=== PATIENT | male | born 1955 | race Caucasian/White ===

== ENCOUNTER 2017-01-26 16:18 | Inpatient (IN) | payer BC ==
[~2017-01-26] VITALS: Ht 172.7 cm; Wt 81.6 kg
[2017-01-26 17:01] VITALS: BP 150/79; PULSE 71; RESP 18
[2017-01-26] MEDS ORDERED: NACL 0.9% 3 ML SYG IV SCH (17:30)
[2017-01-26] MEDS ORDERED: DOCUSATE SODIUM 100 MG CAP PO PRN (17:30)
[2017-01-26] MEDS ORDERED: ONDANSETRON 4 MG INJ IV PRN (17:30)
[2017-01-26] MEDS ORDERED: BARIUM SULF 2% 450 ML BTL (BERRY SMOOTHIE) PO ONE (17:30)
[2017-01-26] MEDS ORDERED: HYDROCODONE/APAP (5/325) TAB PO PRN (17:30)
[2017-01-26] MEDS ORDERED: MAGNESIUM HYDROXIDE 30ML CUP PO PRN (17:30)
--- NOTE | 2017-01-26 17:37 | HP ---
Date/Time of Note Date/Time of Note DATE: 01/26/17 TIME: 17:31 Assessment/Plan VTE Prophylaxis VTE Prophylaxis Intervention: contraindicated Lines/Catheters Urinary Cath still in place: No Assessment/Plan Assessment/Plan 1. Acute renal failure - Patient found to have Cr of 5 with GFR 12 on labs performed at [facility] - Nephrology on board and consultation appreciated. CT abd/pelvis ordered to rule out obstruction vs hydro causing renal impairment - Will avoid nephrotoxic agents and renally dose medications 2. Acute painless hematuria - Urology consulted and awaiting recommendations - CT abd/pelvis ordered 3. ?Urinary tract infection - Will order UA and urine culture - Was on Cipro PO and will start on IV Ceftriaxone until sensitivities return. - Patient had an elevated WBC but afebrile 4. CAD s/p stent 1 year ago - Will hold off on restarting Aspirin secondary to hematuria - Continue on BB and statin 5. Diet - heart healthy 6. DVT ppx - SCD 7. GI ppx - PPI 8. Code Status - Full Code 9. Disposition - Admit to Med/Surg for further evaluation HPI/ROS Admit Date/Time Admit Date/Time Jan 26, 2017 at 16:18 Hx of Present Illness 61 yo M with PMH CAD s/p stent placement 1 year ago was transferred from [facility] after findings of hematuria and acute renal failure. Patient states he was experiencing burning with urination and well as has been needing to strain to urinate since Tuesday and went to see his PCP on Tuesday. He was diagnosed with a UTI and given a Ciprofloxacin and Flomax. He states he took one tab of Flomax and developed headache, dizziness, and flushing so stopped the medication. He was also told that he had renal failure by his PCP on Tuesday. Patient states this am he woke up with hematuria and still experiencing dysuria. He presented to [facility], blood work was performed, and transferred to [facility] due to insurance. Denies any chest pain, shortness of breath, dizziness, headache, nausea, vomiting, or abdominal issues. Patient denies any recent weight loss. ROS Constitutional: No chills, No fatigue, No febrile, No nausea Eyes: no complaints ENT: no complaints Respiratory: No cough, No shortness of breath, No sputum, No wheezing Cardiovascular: No chest pain, No edema, No palpitations Gastrointestinal: No constipation, No diarrhea, No vomiting Genitourinary: dysuria, hematuria Musculoskeletal: no complaints Skin: no complaints Neurologic: no complaints Endocrine: no complaints Lymphatic: no complaints Psychological: nl mood/affect Immunologic: no complaints PMH/Family/Social Past Medical History Medical History: coronary artery disease Past Surgical History Past Surgical Hx: no surgical history Family History Significant Family History: no pertinent family hx Social History Alcohol Use: none Smoking Status: Never smoker Drug Use: none Exam/Review of Systems Vital Signs Vitals Vital Signs Date Time Temp Pulse Resp B/P Pulse Ox O2 Delivery O2 Flow Rate FiO2 01/26/17 17:01 98.2 71 18 150/79 96 Room Air Exam Constitutional: alert, oriented, well developed, No distress Psych: nl mood/affect Head: atraumatic, normocephalic Eyes: EOMI, PERRL ENMT: mucosa pink and moist Neck: non-tender, supple Respiratory: clear to auscultation, normal air movement, No crackles/rales, No wheezing Cardiovascular: nl pulses, regular rate and rhythm, No murmurs/extra sounds, No systolic murmur Gastrointestinal: bowel sounds, non-tender, soft, No distended, No firm, No rebound or guarding Genitourinary - Male: other (hematruia), No CVA tenderness Musculoskeletal: nl extremities to inspection, nl gait and stance Extremities: normal pulses Neurological: NURSING COORDINATOR II-XII intact, nl mental status Skin: nl turgor Lymph: nl lymph nodes Medications Medications Home medications reviewed Aspirin 81mg Lisinopril 5mg Atorvastatin 20mg Carvedilol 6.25mg BID Cipro 500mg BID IRVING BACON MD Jan 26, 2017 17:37
[2017-01-26] MEDS: SOD CHLORIDE 0.9% 1,000 ML IV SCH (19:04)
--- NOTE | 2017-01-26 19:24 | RADRPT ---
PROCEDURE: XR Chest. CLINICAL INDICATION: Cough TECHNIQUE: Single AP view of the chest were obtained COMPARISON: None FINDINGS: The heart and mediastinum are within normal limits. The pulmonary vasculature are unremarkable. The aorta demonstrates atherosclerotic calcifications. There is no lung consolidation, pleural effusio n or pneumothorax. Degenerative changes are seen within the thoracic spine. There is no acute osse ous abnormality. IMPRESSION: No acute disease. RPTAT: AA .Xiomara Groves MD, Date Time Electronically viewed and signed by .Xiomara Groves MD, MD on 01/26/2017 19:24 .J/
[2017-01-26 20:00] VITALS: Ht 172.7 cm; Wt 81.6 kg
--- NOTE | 2017-01-26 21:49 | RADRPT ---
PROCEDURE: CT Abdomen and Pelvis without contrast. CLINICAL INDICATION: Acute renal failure, hematuria TECHNIQUE: CT of the abdomen and pelvis was performed on a multi-detector scanner without IV contr ast. Coronal and sagittal images were reformatted from the axial data set. One or more of the foll owing dose reduction techniques were used: automated exposure control, adjustment of the mA and/or k V according to patient size, use of iterative reconstruction technique. CTDI = 11.52 mGy. DLP = 661 .21 mGy-cm. COMPARISON: None. FINDINGS: The lung bases are clear. The heart size is normal, without pericardial effusion. Coronary arteria l calcification and stents are noted. Liver, gallbladder, biliary tree, pancreas, spleen and adrenal glands are unremarkable. There is minimal bilateral hydroureteronephrosis to the level of the urina ry bladder, without evidence of urinary calculus. Bilateral renal cysts are noted. The stomach is mi ldly distended and debris filled, but otherwise grossly unremarkable. The aorta is of normal caliber. Aortic vascular calcifications are present. There is no retroperit crocker lymphadenopathy. The lavern hepatis region is clear. No bowel obstruction, free intraperitoneal air or abscess is identified. There is no diverticulosis, diverticulitis, colitis or appendicitis. Urinary bladder wall is circumferentially thickened, with scattered diverticula noted, compatible with muscular hypertrophy secondary to chronic urinary reten tion. Prostate is mildly enlarged. No pelvic mass, free fluid or lymphadenopathy is identified. Smal l bilateral fat containing inguinal hernias are noted. The surrounding osseous structures are remarkable for degenerative enthesopathy of the spine. No os teolytic or osteoblastic lesion is detected. IMPRESSION: 1. Urinary bladder wall muscular hypertrophy and scattered bladder diverticula are noted, presumabl y secondary to chronic urinary retention. Prostate is mildly enlarged - correlate with PSA level. 2. There is minimal bilateral hydroureteronephrosis to the level of the urinary bladder, most likel y secondary to bladder wall thickening. No evidence of urinary calculus is identified. 3. Coronary arterial and aortoiliac atherosclerotic calcifications are present. 4. Small bilateral fat containing inguinal hernias are seen, without incarceration. 5. No mass, lymphadenopathy, or acute inflammatory process is identified. RPTAT: HDWR .Tyrone Dangelo MD, MD Date Time Electronically viewed and signed by .Tyrone Dangelo MD, MD on 01/26/2017 21:49 .R/
[2017-01-26] MEDS: ATORVASTATIN 20 MG TAB PO SCH (21:50)
[2017-01-26] MEDS: CEFTRIAXONE 1 GM/50 ML (PMX) 50 ML IVPB SCH (21:50)
[2017-01-26 22:14] VITALS: BP 121/71; RESP 18
[2017-01-27 01:56] LABS: ADD UMIC YES; UR ASCORBIC ACID NEGATIVE (NEGATIVE); UR BACTERIA MANY /HPF (NONE SEEN); UR BILIRUBIN (Dip) NEGATIVE (NEGATIVE); UR BLOOD (Dip) 2+ mg/dL (NEGATIVE); UR CLARITY CLEAR (CLEAR); UR COLOR RED (YELLOW); UR GLUCOSE (Dip) 1+ mg/dL (NEGATIVE); UR KETONES (Dip) NEGATIVE (NEGATIVE); UR LEUKOCYTE ESTERASE (Dip) NEGATIVE Leu/ul (NEGATIVE); UR MUCUS FEW /HPF (NONE SEEN); UR NITRITE (Dip) POSITIVE (NEGATIVE); UR RBC > 182 /HPF (0-5); UR SPECIFIC GRAVITY (Dip) 1.006 (1.003-1.030); UR SQUAMOUS EPITHELIAL CELL FEW /HPF (FEW); UR TOTAL PROTEIN (Dip) 2+ mg/dl (NEGATIVE); UR UROBILINOGEN (Dip) 1+ mg/dL (NEGATIVE)
[2017-01-27 02:02] VITALS: BP 102/67; RESP 18
--- NOTE | 2017-01-27 02:44 | CONS ---
DATE OF ADMISSION: 01/26/2017 DATE OF CONSULTATION: Thank you, Dr. Dutta, for asking us to participate in medical management of this patient. REASON FOR CONSULTATION: Renal failure and gross hematuria. HISTORY OF PRESENT ILLNESS: This 61-year-old man was transferred today from [facility] er after he presented there with gross hematuria. The patient said that he was well until last week when he developed some urinary frequency. He saw his primary care physician and was prescribed Cip ro and Flomax. The patient continued those medications; however, he could not tolerate the Flomax that caused him to feel lightheaded and dizzy. He stopped the Flomax and continued the Cipro. The patient then today developed gross hematuria and dysuria. He went to [place]'s emergency room an d was evaluated and found to have a BUN of 44 and a serum creatinine of 5.01. The patient denies an y prior history of kidney disease. He does have a history of coronary artery disease and did underg o a coronary angiogram 1 year ago and had stents placed in coronary arteries. He has been taking me dications since then which included: 1. Carvedilol 6.25 mg twice a day. 2. Lisinopril 5 mg a day. 3. Aspirin 81 mg a day. 4. Atorvastatin 20 mg a day. 5. Plavix 75 mg a day. The patient denies any history of prostatism, kidney stones, previous urinary tract infections. He denies any fever, chills or flank pain. PAST MEDICAL HISTORY: Remarkable for coronary artery disease, hyperlipidemia. ALLERGIES: HE HAS NO KNOWN DRUG ALLERGIES. PAST SURGICAL HISTORY: Unremarkable except for prior stents placed. REVIEW OF SYSTEMS: CARDIORESPIRATORY: He denies any chest pain, shortness of breath, cough, ankle swelling. GASTROINTESTINAL: None. GENITOURINARY: See above. PHYSICAL EXAMINATION: GENERAL: At this time reveals a well-developed man in no apparent distress. VITAL SIGNS: Temperature 98.2, pulse is 71, respirations 18, blood pressure 150/79, O2 saturation 9 6% on room air. HEENT: Head normocephalic. Eyes: Extraocular muscles intact. NOSE AND MOUTH: Normal. NECK: Supple, no neck vein distention. LUNGS: Clear to auscultation and percussion. HEART: Regular rhythm. No murmurs, gallops or rubs. ABDOMEN: Soft, nontender, no masses or megaly. EXTREMITIES: No peripheral edema. NEUROLOGIC: Grossly intact. IMPRESSION: 1. Acute renal failure. This patient presents now with an elevated BUN and serum creatinine. He h as no prior history of kidney disease. He does have gross hematuria and one must be suspicious of o bstructive uropathy. Will rule out benign prostatic hypertrophy, rule out urinary tract malignancy, rule out urinary tract infection. 2. Gross hematuria. 3. Coronary artery disease. 4. Hyperlipidemia. PLAN: 1. Insert Brower catheter to gravity drainage. 2. Check labs in the morning. 3. Chest x-ray. 4. CAT scan of the abdomen without IV contrast. 5. IV fluids. 6. I will follow the patient along with you. Dictated By: TAMMY LARA MD, ND/FALGUNI Conf#: [id number] DID#: [id number]
[2017-01-27] MEDS: SOD CHLORIDE 0.9% 1,000 ML IV SCH ×2 (03:02→05:41)
[2017-01-27 05:19] LABS: ABNORMAL IP MESSAGE 1; BASOPHIL # 0.1 10^3/ul (0.0-0.1); BASOPHILS % 0.5 % (0.0-2.0); EOSINOPHILS % 0.2 % (0.0-7.0); HEMATOCRIT 37.3 % (42.0-52.0); HEMOGLOBIN 12.6 g/dl (14.0-18.0); LYMPHOCYTES # 1.2 10^3/ul (0.8-2.9); LYMPHOCYTES % 10.5 % (15.0-51.0); MEAN CORPUSCULAR HEMOGLOBIN 31.2 pg (29.0-33.0); MEAN CORPUSCULAR HGB CONC 33.8 g/dl (32.0-37.0); MEAN CORPUSCULAR VOLUME 92.3 fl (82.0-101.0); MEAN PLATELET VOLUME 11.7 fl (7.4-10.4); MONOCYTE # 1.7 10^3/ul (0.3-0.9); MONOCYTES % 14.9 % (0.0-11.0); NEUTROPHIL # 8.1 10^3/ul (1.6-7.5); NEUTROPHILS % 73.2 % (39.0-77.0); PLATELET COUNT 105 10^3/UL (140-415); POSITIVE DIFF @See below; RED BLOOD COUNT 4.04 10^6/ul (4.70-6.10); RED CELL DISTRIBUTION WIDTH 14.7 % (11.5-14.5); WHITE BLOOD COUNT 11.1 10^3/ul (4.8-10.8)
[2017-01-27 05:26] LABS: INR 1.19; PROTIME 15.2 Sec (12.2-14.2); PT RATIO 1.2
[2017-01-27 05:27] LABS: PARTIAL THROMBOPLASTIN TIME 28.1 Sec (25.0-35.0)
[2017-01-27] MEDS: PANTOPRAZOLE (EC) 40 MG TAB PO SCH (05:41)
[2017-01-27 06:21] LABS: ALBUMIN 3.5 g/dl (3.3-4.9); ALBUMIN/GLOBULIN RATIO 1.09; BILIRUBIN,INDIRECT 8.6 mg/dl (0-1.1); BILIRUBIN,TOTAL 8.6 mg/dl (0.2-1.3); CALCIUM 8.8 mg/dl (8.4-10.2); CREATININE 4.16 mg/dl (0.61-1.24); MAGNESIUM 2.2 mg/dl (1.7-2.5); POTASSIUM 4.3 mmol/L (3.5-5.1); TOTAL PROTEIN 6.7 g/dl (6.1-8.1)
[2017-01-27 07:33] VITALS: BP 127/76; RESP 19
--- NOTE | 2017-01-27 08:09 | CONS ---
Date/Time of Note Date/Time of Note DATE: 01/27/17 TIME: 07:57 Assessment/Plan Assessment/Plan Chief Complaint/Hosp Course 61-year-old male with gross hematuria and symptoms suggestive of urinary tract infection has acute renal failure. He had a Brower catheter that was not all the way inside the bladder causing him obstruction and when that was removed he was able to urinate. He just voided and the urine is light pink and it is clearing from what it was grossly bloody during the night. Will send urine for culture and sensitivity, urine cytology, cover him with antibiotics and check his PSA on the blood that was drawn at the time of admission and he will need to undergo a cystoscopy to check for bladder tumor. He also was seen in a nephrology consultation for his renal failure Problems: Consultation Date/Type/Reason Admit Date/Time Jan 26, 2017 at 16:18 Date of Consultation: Jan 27, 2017 Type of Consultation: UROLOGY Reason for Consultation Gross hematuria Referring Provider: IRVING BACON MD Hx of Present Illness 61-year-old male started having urinary frequency one week earlier and feeling he has to push to urinate. He went to his primary care physician and was diagnosed with urinary tract infection. He was prescribed Cipro and tamsulosin. He took one time tamsulosin and started having headaches and flushing so he stopped it. His condition did not improve and he started having hematuria. He went to [facility] and was transferred to [facility] because of his insurance. Laboratory data from [facility] showed that he is in renal failure. When he was admitted to [facility] a Brower catheter was inserted however the Brower catheter was not draining and he had blood in the catheter. I instructed the nurse at night to remove the Brower catheter as on the CT scan that he had the catheter did not appear to be in the bladder and may be causing him obstruction rather than draining his urine. Indeed after the nurse remove the Brower catheter the patient was able to urinate and he urinated large volume and he just urinated now and the urine is gradually clearing up. Constitutional: no complaints Eyes: no complaints ENT: no complaints Respiratory: no complaints, No cough, No shortness of breath, No sputum, No wheezing Cardiovascular: other (Patient has a history of heart attack one year ago and had 2 stents placed at [facility]), No chest pain, No edema, No palpitations Gastrointestinal: No constipation, No diarrhea, No vomiting Genitourinary: bleeding, dysuria, hematuria Musculoskeletal: no complaints Skin: no complaints Neurologic: no complaints Lymphatic: no complaints Psychological: nl mood/affect Immunologic: no complaints Past Medical History Medical History: coronary artery disease (Heart attack 1 year ago and placement of 2 coronary stents) Past Surgical History Past Surgical Hx: no surgical history Family History Significant Family History: no pertinent family hx Social History Alcohol Use: none Smoking Status: Never smoker Drug Use: none Exam/Review of Systems Vital Signs Vitals Vital Signs Date Time Temp Pulse Resp B/P Pulse Ox O2 Delivery O2 Flow Rate FiO2 01/27/17 07:33 98.2 65 19 127/76 98 01/26/17 17:01 Room Air Intake and Output 01/26/17 01/26/17 01/27/17 15:00 23:00 07:00 Intake Total 50 ml 1700 ml Output Total 1500 ml Balance 50 ml 200 ml Exam Constitutional: alert, oriented Psych: no complaints Head: normocephalic Eyes: nl conjunctiva ENMT: nl external ears & nose Neck: non-tender, supple Respiratory: normal air movement Cardiovascular: nl pulses, No edema Gastrointestinal: non-tender, soft Genitourinary - Male: nl penis, nl scrotum, other (Rectal exam prostate is a little firm on the right side and enlarged.), No CVA tenderness Musculoskeletal: nl extremities to inspection Extremities: No calf tenderness, No edema Skin: nl turgor Lymph: nl lymph nodes Results Result Diagram: 01/27/17 0439 01/27/17 0439 Results 24 hrs Laboratory Tests Test 01/26/17 21:45 01/27/17 04:38 01/27/17 04:39 Urine Color RED Urine Clarity CLEAR Urine pH 7.0 Urine Specific [place] 1.006 Urine Ketones NEGATIVE Urine Nitrite POSITIVE A Urine Bilirubin NEGATIVE Urine Urobilinogen 1+ H Urine Leukocyte Esterase NEGATIVE Urine Microscopic RBC > 182 H Urine Microscopic WBC 10 H Urine Squamous Epithelial Cells FEW Urine Bacteria MANY A Urine Mucus FEW A Urine Hemoglobin 2+ H Urine Glucose 1+ H Urine Total Protein 2+ H Prothrombin Time 15.2 H Prothrombin Time Ratio 1.2 INR International Normalized Ratio 1.19 Activated Partial Thromboplast Time 28.1 White Blood Count 11.1 H Red Blood Count 4.04 L Hemoglobin 12.6 L Hematocrit 37.3 L Mean Corpuscular Volume 92.3 Mean Corpuscular Hemoglobin 31.2 Mean Corpuscular Hemoglobin Concent 33.8 Red Cell Distribution Width 14.7 H Platelet Count 105 L Mean Platelet Volume 11.7 H Neutrophils % 73.2 Lymphocytes % 10.5 L Monocytes % 14.9 H Eosinophils % 0.2 Basophils % 0.5 Nucleated Red Blood Cells % 0.0 Neutrophils # 8.1 H Lymphocytes # 1.2 Monocytes # 1.7 H Eosinophils # 0.0 Basophils # 0.1 Nucleated Red Blood Cells # 0.0 Sodium Level 144 Potassium Level 4.3 Chloride Level 111 H Carbon Dioxide Level 23 Anion Gap 14 Blood Urea Nitrogen 55 H Creatinine 4.16 H Glucose Level 116 Calcium Level 8.8 Magnesium Level 2.2 Total Bilirubin 8.6 H Direct Bilirubin 0.00 Indirect Bilirubin 8.6 H Aspartate Amino Transf (AST/SGOT) 79 H Alanine Aminotransferase (ALT/SGPT) 34 Alkaline Phosphatase 43 Total Protein 6.7 Albumin 3.5 Globulin 3.20 Albumin/Globulin Ratio 1.09 Imaging Free Text/Dictation CT scan of the abdomen and pelvis: 1. Urinary bladder wall muscular hypertrophy and scattered bladder diverticula are noted, presumably secondary to chronic urinary retention. Prostate is mildly enlarged - correlate with PSA level. 2. There is minimal bilateral hydroureteronephrosis to the level of the urinary bladder, most likely secondary to bladder wall thickening. No evidence of urinary calculus is identified. 3. Coronary arterial and aortoiliac atherosclerotic calcifications are present. 4. Small bilateral fat containing inguinal hernias are seen, without incarceration. 5. No mass, lymphadenopathy, or acute inflammatory process is identified. Medications Medications Current Medications Sodium Chloride (NS) 1,000 ml @ 100 mls/hr Q10H IV Last administered on t 05:41; Admin Dose 100 MLS/HR; Start 01/26/17 at 17:02 Ondansetron HCl (Zofran Inj) 4 mg Q6H PRN IV NAUSEA AND/OR VOMITING; Start at 17:30 Acetaminophen (Tylenol Tab) 650 mg Q6H PRN PO PAIN LEVEL 1-3 OR FEVER; Start 01/26/17 at 17:30 Acetaminophen/ Hydrocodone Bitart ([place] (5/325)) 1 tab Q6H PRN PO MODERATE PAIN LEVEL 4-6 Last administered on 01/26/17 20:53; Admin Dose 1 TAB; Start 01/26/17 at 17:30 Docusate Sodium (Colace) 100 mg Q12H PRN PO CONSTIPATION; Start 01/26/17 at 17 :30 Magnesium Hydroxide (Milk Of Mag) 30 ml DAILY PRN PO CONSTIPATION; Start 01/26 at 17:30 Pantoprazole (Protonix Tab) 40 mg DAILY@06 PO Last administered on 01/27/17 05:41; Admin Dose 40 MG; Start 01/27/17 at 06:00 Carvedilol (Coreg) 6.25 mg BID PO Last administered on 01/26/17 21:50; Admin Dose 6.25 MG; Start 01/26/17 at 21:00 Atorvastatin Calcium 20 mg 20 mg HS PO Last administered on 01/26/17 21:50; Admin Dose 20 MG; Start 01/26/17 at 21:00 Ceftriaxone Sodium (Rocephin) 50 ml @ 100 mls/hr Q24H IVPB Last administered on 01/26/17 21:50; Admin Dose 100 MLS/HR; Start 01/26/17 at 18:30 CHRISTIANO MUHAMMAD MD Jan 27, 2017 08:08
--- NOTE | 2017-01-27 09:41 | CONS ---
Date/Time of Note Date/Time of Note DATE: 01/27/17 TIME: 09:36 Assessment/Plan Assessment/Plan Chief Complaint/Hosp Course 1. Acute renal failure. This patient most likely had some obstructive uropathy. I will need to review the CAT scan of the abdomen and pelvis with the radiologist. He did not comment about the kidney size or cortex. The patient's renal function is improving and he is nonoliguric. His IV line is positional and he would prefer not to have another IV placed. I will discontinue IV fluids and I encouraged him to drink fluids. He is going to have a urologic workup by . 2. Coronary artery disease 3. Possible urinary tract infection. Problems: Consultation Date/Type/Reason Admit Date/Time Jan 26, 2017 at 16:18 Initial Consult Date 01/27/17 Type of Consultation: UROLOGY Referring Provider: IRVING BACON MD 24 HR Interval Summary Free Text/Dictation Patient is awake and alert today. He has a good appetite and he is drinking fluids without a problem. He says that he is urinating well and he still has some blood-tinged urine but less than yesterday. Constitutional: improved, no complaints Exam/Review of Systems Vital Signs Vitals Vital Signs Date Time Temp Pulse Resp B/P Pulse Ox O2 Delivery O2 Flow Rate FiO2 01/27/17 07:33 98.2 65 19 127/76 98 01/26/17 17:01 Room Air Intake and Output 01/26/17 01/26/17 01/27/17 15:00 23:00 07:00 Intake Total 50 ml 1700 ml Output Total 1500 ml Balance 50 ml 200 ml Exam Constitutional: alert, oriented, well developed Psych: no complaints Respiratory: clear to auscultation, normal air movement Cardiovascular: regular rate and rhythm Gastrointestinal: soft Musculoskeletal: nl extremities to inspection Results Result Diagram: 01/27/17 0439 01/27/17 0439 Results 24 hrs Laboratory Tests Test 01/26/17 21:45 01/27/17 04:36 01/27/17 04:38 01/27/17 04:39 Urine Color RED Urine Clarity CLEAR Urine pH 7.0 Urine Specific [place] 1.006 Urine Ketones NEGATIVE Urine Nitrite POSITIVE A Urine Bilirubin NEGATIVE Urine Urobilinogen 1+ H Urine Leukocyte Esterase NEGATIVE Urine Microscopic RBC > 182 H Urine Microscopic WBC 10 H Urine Squamous Epithelial Cells FEW Urine Bacteria MANY A Urine Mucus FEW A Urine Hemoglobin 2+ H Urine Glucose 1+ H Urine Total Protein 2+ H Prostate Specific Antigen 3.6 Prothrombin Time 15.2 H Prothrombin Time Ratio 1.2 INR International Normalized Ratio 1.19 Activated Partial Thromboplast Time 28.1 Phosphorus Level 5.2 H White Blood Count 11.1 H Red Blood Count 4.04 L Hemoglobin 12.6 L Hematocrit 37.3 L Mean Corpuscular Volume 92.3 Mean Corpuscular Hemoglobin 31.2 Mean Corpuscular Hemoglobin Concent 33.8 Red Cell Distribution Width 14.7 H Platelet Count 105 L Mean Platelet Volume 11.7 H Neutrophils % 73.2 Lymphocytes % 10.5 L Monocytes % 14.9 H Eosinophils % 0.2 Basophils % 0.5 Nucleated Red Blood Cells % 0.0 Neutrophils # 8.1 H Lymphocytes # 1.2 Monocytes # 1.7 H Eosinophils # 0.0 Basophils # 0.1 Nucleated Red Blood Cells # 0.0 Sodium Level 144 Potassium Level 4.3 Chloride Level 111 H Carbon Dioxide Level 23 Anion Gap 14 Blood Urea Nitrogen 55 H Creatinine 4.16 H Glucose Level 116 Calcium Level 8.8 Magnesium Level 2.2 Total Bilirubin 8.6 H Direct Bilirubin 0.00 Indirect Bilirubin 8.6 H Aspartate Amino Transf (AST/SGOT) 79 H Alanine Aminotransferase (ALT/SGPT) 34 Alkaline Phosphatase 43 Total Protein 6.7 Albumin 3.5 Globulin 3.20 Albumin/Globulin Ratio 1.09 Medications Medications Current Medications Sodium Chloride (NS) 1,000 ml @ 100 mls/hr Q10H IV Last administered on 05:41; Admin Dose 100 MLS/HR; Start 01/26/17 at 17:02 Ondansetron HCl (Zofran Inj) 4 mg Q6H PRN IV NAUSEA AND/OR VOMITING; Start at 17:30 Acetaminophen (Tylenol Tab) 650 mg Q6H PRN PO PAIN LEVEL 1-3 OR FEVER; Start 01/26/17 at 17:30 Acetaminophen/ Hydrocodone Bitart ([place] (5/325)) 1 tab Q6H PRN PO MODERATE PAIN LEVEL 4-6 Last administered on 01/26/17 20:53; Admin Dose 1 TAB; Start 01/26/17 at 17:30 Docusate Sodium (Colace) 100 mg Q12H PRN PO CONSTIPATION; Start 01/26/17 at 17 :30 Magnesium Hydroxide (Milk Of Mag) 30 ml DAILY PRN PO CONSTIPATION; Start 01/26 at 17:30 Pantoprazole (Protonix Tab) 40 mg DAILY@06 PO Last administered on 01/27/17 05:41; Admin Dose 40 MG; Start 01/27/17 at 06:00 Carvedilol (Coreg) 6.25 mg BID PO Last administered on 01/27/17 08:38; Admin Dose 6.25 MG; Start 01/26/17 at 21:00 Atorvastatin Calcium 20 mg 20 mg HS PO Last administered on 01/26/17 21:50; Admin Dose 20 MG; Start 01/26/17 at 21:00 Ceftriaxone Sodium (Rocephin) 50 ml @ 100 mls/hr Q24H IVPB Last administered on 01/26/17 21:50; Admin Dose 100 MLS/HR; Start 01/26/17 at 18:30 TAMMY LARA MD Jan 27, 2017 09:41
[2017-01-27 14:15] VITALS: BP 109/72; RESP 18
--- NOTE | 2017-01-27 16:00 | PN ---
Date/Time of Note Date/Time of Note DATE: 01/27/17 TIME: 15:53 Assessment/Plan VTE Prophylaxis VTE Prophylaxis Intervention: contraindicated Lines/Catheters IV C[facility]ter Type (from [facility] Peripheral IV Urinary Cath still in place: No Assessment/Plan Assessment/Plan 1. Acute renal failure- improving - Nephrology on board and recommendations appreciated. Plans to further review CT scan of abdomen with radiologist - Will d/c IVF and encourage PO intake. - Cr improving but still elevated. Will continue to monitor. Patient producing urine with no issues. - Patient found to have Cr of 5 with GFR 12 on labs performed at [facility] - Will avoid nephrotoxic agents and renally dose medications 2. Acute painless hematuria - Urology consulted and appreciate recommendations. Will need to evaluate for bladder tumor with cystoscopy - PSA ordered and elevated at 3.6 3. ?Urinary tract infection - +UA and urine cultures showing no growth - Currently on IV Ceftriaxone day 2 - WBC trending downward 4. CAD s/p stent 1 year ago - Will hold off on restarting Aspirin secondary to hematuria - Continue on BB and statin 5. Elevated Bilirubin - CT abd did not show any abnormality and patient denies any abdominal discomfort - Will monitor and if does not improve will order US RUQ 6. Disposition - continue workup for hematuria on Med/Surg Subjective 24 Hr Interval Summary Free Text/Dictation Patient states feeling better since celaya removed and urine is more pink tinged rather than bright red like yesterday. Denies any other issues and no acute overnight events. Exam/Review of Systems Vital Signs Vitals Vital Signs Date Time Temp Pulse Resp B/P Pulse Ox O2 Delivery O2 Flow Rate FiO2 01/27/17 14:15 99.0 74 18 109/72 95 01/26/17 17:01 Room Air Intake and Output 01/26/17 01/26/17 01/27/17 15:00 23:00 07:00 Intake Total 50 ml 1700 ml Output Total 1500 ml Balance 50 ml 200 ml Exam Constitutional: alert, oriented, well developed, No distress Head: atraumatic, normocephalic Eyes: EOMI, PERRL ENMT: mucosa pink and moist Respiratory: clear to auscultation, normal air movement, No crackles/rales, No wheezing Cardiovascular: nl pulses, regular rate and rhythm, No murmurs/extra sounds, No systolic murmur Gastrointestinal: bowel sounds, non-tender, soft, No distended, No firm, No rebound or guarding. Lavon negative Genitourinary - Male: hematuria, more pink tinged today, No CVA tenderness Musculoskeletal: nl extremities to inspection, nl gait and stance Extremities: normal pulses Neurological: OVEN ROASTER II-XII intact, nl mental status Results Result Diagram: 01/27/17 0439 01/27/17 0439 Results 24 hrs Laboratory Tests Test 01/26/17 21:45 01/27/17 04:36 01/27/17 04:38 01/27/17 04:39 Urine Color RED Urine Clarity CLEAR Urine pH 7.0 Urine Specific [place] 1.006 Urine Ketones NEGATIVE Urine Nitrite POSITIVE A Urine Bilirubin NEGATIVE Urine Urobilinogen 1+ H Urine Leukocyte Esterase NEGATIVE Urine Microscopic RBC > 182 H Urine Microscopic WBC 10 H Urine Squamous Epithelial Cells FEW Urine Bacteria MANY A Urine Mucus FEW A Urine Hemoglobin 2+ H Urine Glucose 1+ H Urine Total Protein 2+ H Prostate Specific Antigen 3.6 Prothrombin Time 15.2 H Prothrombin Time Ratio 1.2 INR International Normalized Ratio 1.19 Activated Partial Thromboplast Time 28.1 Phosphorus Level 5.2 H White Blood Count 11.1 H Red Blood Count 4.04 L Hemoglobin 12.6 L Hematocrit 37.3 L Mean Corpuscular Volume 92.3 Mean Corpuscular Hemoglobin 31.2 Mean Corpuscular Hemoglobin Concent 33.8 Red Cell Distribution Width 14.7 H Platelet Count 105 L Mean Platelet Volume 11.7 H Neutrophils % 73.2 Lymphocytes % 10.5 L Monocytes % 14.9 H Eosinophils % 0.2 Basophils % 0.5 Nucleated Red Blood Cells % 0.0 Neutrophils # 8.1 H Lymphocytes # 1.2 Monocytes # 1.7 H Eosinophils # 0.0 Basophils # 0.1 Nucleated Red Blood Cells # 0.0 Sodium Level 144 Potassium Level 4.3 Chloride Level 111 H Carbon Dioxide Level 23 Anion Gap 14 Blood Urea Nitrogen 55 H Creatinine 4.16 H Glucose Level 116 Calcium Level 8.8 Magnesium Level 2.2 Total Bilirubin 8.6 H Direct Bilirubin 0.00 Indirect Bilirubin 8.6 H Aspartate Amino Transf (AST/SGOT) 79 H Alanine Aminotransferase (ALT/SGPT) 34 Alkaline Phosphatase 43 Total Protein 6.7 Albumin 3.5 Globulin 3.20 Albumin/Globulin Ratio 1.09 Medications Medications Current Medications Ondansetron HCl (Zofran Inj) 4 mg Q6H PRN IV NAUSEA AND/OR VOMITING; Start at 17:30 Acetaminophen (Tylenol Tab) 650 mg Q6H PRN PO PAIN LEVEL 1-3 OR FEVER; Start 01/26/17 at 17:30 Acetaminophen/ Hydrocodone Bitart ([place] (5/325)) 1 tab Q6H PRN PO MODERATE PAIN LEVEL 4-6 Last administered on 01/26/17 20:53; Admin Dose 1 TAB; Start 01/26/17 at 17:30 Docusate Sodium (Colace) 100 mg Q12H PRN PO CONSTIPATION; Start 01/26/17 at 17 :30 Magnesium Hydroxide (Milk Of Mag) 30 ml DAILY PRN PO CONSTIPATION; Start 01/26 at 17:30 Pantoprazole (Protonix Tab) 40 mg DAILY@06 PO Last administered on 01/27/17 05:41; Admin Dose 40 MG; Start 01/27/17 at 06:00 Carvedilol (Coreg) 6.25 mg BID PO Last administered on 01/27/17 08:38; Admin Dose 6.25 MG; Start 01/26/17 at 21:00 Atorvastatin Calcium 20 mg 20 mg HS PO Last administered on 01/26/17 21:50; Admin Dose 20 MG; Start 01/26/17 at 21:00 Ceftriaxone Sodium (Rocephin) 50 ml @ 100 mls/hr Q24H IVPB Last administered on 01/26/17 21:50; Admin Dose 100 MLS/HR; Start 01/26/17 at 18:30 IRVING BACON MD Jan 27, 2017 16:00
[2017-01-27] MEDS: CEFTRIAXONE 1 GM/50 ML (PMX) 50 ML IVPB SCH (17:09)
--- NOTE | 2017-01-27 18:32 | RADRPT ---
Vent Rate: 62 bpm RR Interval: 0 msec GA Interval: 152 msec QRS Duration: 94 msec QT Interval: 410 msec QTC Interval: 416 msec P-R-T [place]: 58 - 8 - 65 degrees Normal sinus rhythm Normal ECG Electronically Signed By: Miguel Angel Dunham [id number]
[2017-01-27 19:15] VITALS: BP 123/77; RESP 18
[2017-01-27] MEDS: ATORVASTATIN 20 MG TAB PO SCH (20:57)
[2017-01-28] MEDS: ACETAMINOPHEN 325 MG TAB PO PRN (00:51)
[2017-01-28] MEDS: PANTOPRAZOLE (EC) 40 MG TAB PO SCH (06:04)
[2017-01-28 06:08] LABS: BASOPHIL # 0.1 10^3/ul (0.0-0.1); BASOPHILS % 0.6 % (0.0-2.0); EOSINOPHILS # 0.1 10^3/ul (0.0-0.5); HEMATOCRIT 35.6 % (42.0-52.0); HEMOGLOBIN 11.8 g/dl (14.0-18.0); LYMPHOCYTES # 1.6 10^3/ul (0.8-2.9); LYMPHOCYTES % 17.3 % (15.0-51.0); MEAN CORPUSCULAR HEMOGLOBIN 31.1 pg (29.0-33.0); MEAN CORPUSCULAR HGB CONC 33.1 g/dl (32.0-37.0); MEAN CORPUSCULAR VOLUME 93.7 fl (82.0-101.0); MEAN PLATELET VOLUME 12.2 fl (7.4-10.4); MONOCYTE # 1.3 10^3/ul (0.3-0.9); MONOCYTES % 13.9 % (0.0-11.0); NEUTROPHILS % 66.8 % (39.0-77.0); PLATELET COUNT 108 10^3/UL (140-415); RED CELL DISTRIBUTION WIDTH 14.8 % (11.5-14.5)
[2017-01-28 07:00] LABS: ALBUMIN 3.5 g/dl (3.3-4.9); ALBUMIN/GLOBULIN RATIO 1.29; BILIRUBIN,INDIRECT 1.7 mg/dl (0-1.1); BILIRUBIN,TOTAL 1.7 mg/dl (0.2-1.3); CALCIUM 8.8 mg/dl (8.4-10.2); CREATININE 2.56 mg/dl (0.61-1.24); POTASSIUM 4.2 mmol/L (3.5-5.1); TOTAL PROTEIN 6.2 g/dl (6.1-8.1)
[2017-01-28 07:38] VITALS: BP 123/75; RESP 19
--- NOTE | 2017-01-28 08:10 | PN ---
Date/Time of Note Date/Time of Note DATE: 01/28/17 TIME: 08:05 Assessment/Plan VTE Prophylaxis VTE Prophylaxis Intervention: SCD's Lines/Catheters IV [facility] Type (from [facility] Saline Lock Urinary Cath still in place: No Assessment/Plan Chief Complaint/Hosp Course 61-year-old male with gross hematuria and symptoms suggestive of urinary tract infection has acute renal failure. Renal function is improving His urine has cleared up, urine culture so far has been negative, PSA is 3.6 Patient most likely had urinary tract infection however the urine culture is negative most probably because he was on antibiotics but one cannot rule out possibility of bladder tumor therefore I scheduled him to undergo a cystoscopy, bilateral retrograde pyelograms and possible transurethral resection of bladder tumors and/or bladder biopsy. I explained these procedures to the patient and the purpose for doing them,benefits, risks and complications. He understood and is agreeable to proceed. Problems: Subjective 24 Hr Interval Summary Constitutional: no complaints Eyes: no complaints ENT: no complaints Respiratory: no complaints Cardiovascular: no complaints Gastrointestinal: no complaints Genitourinary: other (Urinary frequency) Musculoskeletal: no complaints Skin: no complaints Neurologic: no complaints Endocrine: no complaints Lymphatic: no complaints Exam/Review of Systems Vital Signs Vitals Vital Signs Date Time Temp Pulse Resp B/P Pulse Ox O2 Delivery O2 Flow Rate FiO2 01/28/17 07:38 98.0 55 19 123/75 98 01/26/17 17:01 Room Air Intake and Output 01/27/17 01/27/17 01/28/17 15:00 23:00 07:00 Intake Total 2326 ml 1600 ml Output Total 1772 ml 1900 ml Balance 554 ml -300 ml Exam Constitutional: alert, oriented Psych: no complaints Head: normocephalic Eyes: nl conjunctiva ENMT: nl external ears & nose Neck: supple Respiratory: normal air movement Cardiovascular: No edema Gastrointestinal: non-tender, soft Genitourinary - Male: other (Urine is now clear), No CVA tenderness Musculoskeletal: nl extremities to inspection Extremities: No calf tenderness, No edema Results Result Diagram: 01/28/1742401/28/17424 Results 24 hrs Laboratory Tests Test 01/28/17 04:25 White Blood Count 9.0 Red Blood Count 3.80 L Hemoglobin 11.8 L Hematocrit 35.6 L Mean Corpuscular Volume 93.7 Mean Corpuscular Hemoglobin 31.1 Mean Corpuscular Hemoglobin Concent 33.1 Red Cell Distribution Width 14.8 H Platelet Count 108 L Mean Platelet Volume 12.2 H Neutrophils % 66.8 Lymphocytes % 17.3 Monocytes % 13.9 H Eosinophils % 1.0 Basophils % 0.6 Nucleated Red Blood Cells % 0.0 Neutrophils # 6.0 Lymphocytes # 1.6 Monocytes # 1.3 H Eosinophils # 0.1 Basophils # 0.1 Nucleated Red Blood Cells # 0.0 Sodium Level 144 Potassium Level 4.2 Chloride Level 109 Carbon Dioxide Level 27 Anion Gap 12 Blood Urea Nitrogen 40 #H Creatinine 2.56 #H Glucose Level 93 Calcium Level 8.8 Total Bilirubin 1.7 #H Direct Bilirubin 0.00 Indirect Bilirubin 1.7 H Aspartate Amino Transf (AST/SGOT) 36 # Alanine Aminotransferase (ALT/SGPT) 36 Alkaline Phosphatase 40 L Total Protein 6.2 Albumin 3.5 Globulin 2.70 Albumin/Globulin Ratio 1.29 Medications Medications Current Medications Ondansetron HCl (Zofran Inj) 4 mg Q6H PRN IV NAUSEA AND/OR VOMITING; Start at 17:30 Acetaminophen (Tylenol Tab) 650 mg Q6H PRN PO PAIN LEVEL 1-3 OR FEVER Last administered on 01/28/17 00:51; Admin Dose 650 MG; Start 01/26/17 at 17:30 Acetaminophen/ Hydrocodone Bitart ([place] (5/325)) 1 tab Q6H PRN PO MODERATE PAIN LEVEL 4-6 Last administered on 01/26/17 20:53; Admin Dose 1 TAB; Start 01/26/17 at 17:30 Docusate Sodium (Colace) 100 mg Q12H PRN PO CONSTIPATION; Start 01/26/17 at 17 :30 Magnesium Hydroxide (Milk Of Mag) 30 ml DAILY PRN PO CONSTIPATION; Start 01/26 at 17:30 Pantoprazole (Protonix Tab) 40 mg DAILY@06 PO Last administered on 01/28/17 06:04; Admin Dose 40 MG; Start 01/27/17 at 06:00 Carvedilol (Coreg) 6.25 mg BID PO Last administered on 01/27/17 20:57; Admin Dose 6.25 MG; Start 01/26/17 at 21:00 Atorvastatin Calcium 20 mg 20 mg HS PO Last administered on 01/27/17 20:57; Admin Dose 20 MG; Start 01/26/17 at 21:00 Ceftriaxone Sodium (Rocephin) 50 ml @ 100 mls/hr Q24H IVPB Last administered on 01/27/17 17:09; Admin Dose 100 MLS/HR; Start 01/26/17 at 18:30 CHRISTIANO MUHAMMAD MD Jan 28, 2017 08:10
[2017-01-28 14:00] VITALS: BP 121/68; RESP 19
--- NOTE | 2017-01-28 14:00 | PN ---
Date/Time of Note Date/Time of Note DATE: 01/28/17 TIME: 13:57 Assessment/Plan VTE Prophylaxis VTE Prophylaxis Intervention: contraindicated, SCD's Lines/Catheters [facility] Saline Lock Urinary Cath still in place: No Assessment/Plan Assessment/Plan 1. Acute renal failure- improving - Nephrology on board and recommendations appreciated. - Encourage PO intake and renal function has been improving - Patient found to have Cr of 5 with GFR 12 [address] labs performed at [facility] - Will avoid nephrotoxic agents and renally dose medications 2. Acute painless hematuria - Urology consulted and appreciate recommendations. Plans for cystoscopy, b/l retrograde pyelogram, and possible TURB with bladder bx - PSA 3.6 3. ?Urinary tract infection - +UA and urine cultures showing no growth - Currently on IV Ceftriaxone day 2 - WBC normalizing 4. CAD s/p stent 1 year ago - Will hold off on restarting Aspirin secondary to hematuria - Continue on BB and statin 5. Elevated Bilirubin - CT abd did not show any abnormality and patient denies any abdominal discomfort - Trending downward 6. Disposition - plans for Urological workup Subjective 24 Hr Interval Summary Free Text/Dictation Patient doing well and urine has been clearing. Discussed procedure Dr. Marsh will be performing and patient agreeable. No acute overnight events. Exam/Review of Systems Vital Signs Vitals Vital Signs Date Time Temp Pulse Resp B/P Pulse Ox O2 Delivery O2 Flow Rate FiO2 01/28/17 07:38 98.0 55 19 123/75 98 01/26/17 17:01 Room Air Intake and Output 01/27/17 01/27/17 01/28/17 15:00 23:00 07:00 Intake Total 2326 ml 1600 ml Output Total 1772 ml 1900 ml Balance 554 ml -300 ml Exam Constitutional: alert, oriented, well developed, No distress Head: atraumatic, normocephalic Eyes: EOMI, PERRL ENMT: mucosa pink and moist Respiratory: clear to auscultation, normal air movement, No crackles/rales, No wheezing Cardiovascular: nl pulses, regular rate and rhythm, No murmurs/extra sounds, No systolic murmur Gastrointestinal: bowel sounds, non-tender, soft, No distended, No firm, No rebound or guarding. Genitourinary - Male: clearing hematuria, No CVA tenderness Musculoskeletal: nl extremities to inspection, nl gait and stance Extremities: normal pulses Neurological: TREATMENT SPECIALIST II-XII intact, nl mental status Results Result Diagram: 01/28/1742401/28/17424 Results 24 hrs Laboratory Tests Test 01/28/17 04:25 White Blood Count 9.0 Red Blood Count 3.80 L Hemoglobin 11.8 L Hematocrit 35.6 L Mean Corpuscular Volume 93.7 Mean Corpuscular Hemoglobin 31.1 Mean Corpuscular Hemoglobin Concent 33.1 Red Cell Distribution Width 14.8 H Platelet Count 108 L Mean Platelet Volume 12.2 H Neutrophils % 66.8 Lymphocytes % 17.3 Monocytes % 13.9 H Eosinophils % 1.0 Basophils % 0.6 Nucleated Red Blood Cells % 0.0 Neutrophils # 6.0 Lymphocytes # 1.6 Monocytes # 1.3 H Eosinophils # 0.1 Basophils # 0.1 Nucleated Red Blood Cells # 0.0 Sodium Level 144 Potassium Level 4.2 Chloride Level 109 Carbon Dioxide Level 27 Anion Gap 12 Blood Urea Nitrogen 40 #H Creatinine 2.56 #H Glucose Level 93 Calcium Level 8.8 Total Bilirubin 1.7 #H Direct Bilirubin 0.00 Indirect Bilirubin 1.7 H Aspartate Amino Transf (AST/SGOT) 36 # Alanine Aminotransferase (ALT/SGPT) 36 Alkaline Phosphatase 40 L Total Protein 6.2 Albumin 3.5 Globulin 2.70 Albumin/Globulin Ratio 1.29 Medications Medications Current Medications Ondansetron HCl (Zofran Inj) 4 mg Q6H PRN IV NAUSEA AND/OR VOMITING; Start at 17:30 Acetaminophen (Tylenol Tab) 650 mg Q6H PRN PO PAIN LEVEL 1-3 OR FEVER Last administered on 01/28/17 00:51; Admin Dose 650 MG; Start 01/26/17 at 17:30 Acetaminophen/ Hydrocodone Bitart ([place] (5/325)) 1 tab Q6H PRN PO MODERATE PAIN LEVEL 4-6 Last administered on 01/26/17 20:53; Admin Dose 1 TAB; Start 01/26/17 at 17:30 Docusate Sodium (Colace) 100 mg Q12H PRN PO CONSTIPATION; Start 01/26/17 at 17 :30 Magnesium Hydroxide (Milk Of Mag) 30 ml DAILY PRN PO CONSTIPATION; Start 10/18 /17 at 17:30 Pantoprazole (Protonix Tab) 40 mg DAILY@06 PO Last administered on 01/28/17 06:04; Admin Dose 40 MG; Start 01/27/17 at 06:00 Carvedilol (Coreg) 6.25 mg BID PO Last administered on 01/28/17 08:42; Admin Dose 6.25 MG; Start 01/26/17 at 21:00 Atorvastatin Calcium 20 mg 20 mg HS PO Last administered on 01/27/17 20:57; Admin Dose 20 MG; Start 01/26/17 at 21:00 Ceftriaxone Sodium (Rocephin) 50 ml @ 100 mls/hr Q24H IVPB Last administered on 01/27/17 17:09; Admin Dose 100 MLS/HR; Start 01/26/17 at 18:30 IRVING BACON MD Jan 28, 2017 14:00
--- NOTE | 2017-01-28 16:54 | CONS ---
Date/Time of Note Date/Time of Note DATE: 01/28/17 TIME: 16:47 Assessment/Plan Assessment/Plan Chief Complaint/Hosp Course 1. Acute renal failure. This patient most likely had some obstructive uropathy , which seems to have resolved . His renal function is improving He is going to have a urologic workup by . Continue current medication and encourage po fluids . 2. Coronary artery disease 3. Possible urinary tract infection , although cultures here have been no growth . Problems: Consultation Date/Type/Reason Admit Date/Time Jan 26, 2017 at 16:18 Initial Consult Date 01/27/17 Type of Consultation: UROLOGY Referring Provider: IRVING BACON MD 24 HR Interval Summary Free Text/Dictation He has no complaints today . He is urinating without pain and less blood in his urine . Constitutional: improved, no complaints Exam/Review of Systems Vital Signs Vitals Vital Signs Date Time Temp Pulse Resp B/P Pulse Ox O2 Delivery O2 Flow Rate FiO2 01/28/17 14:00 98.0 71 19 121/68 98 01/26/17 17:01 Room Air Intake and Output 01/27/17 01/27/17 01/28/17 15:00 23:00 07:00 Intake Total 2326 ml 1600 ml Output Total 1772 ml 1900 ml Balance 554 ml -300 ml Exam Constitutional: alert, oriented, well developed ENMT: nl external ears & nose, nl lips & teeth, nl nasal mucosa & septum Neck: non-tender, supple Respiratory: clear to auscultation, normal air movement Cardiovascular: regular rate and rhythm Musculoskeletal: nl extremities to inspection Results Result Diagram: 01/28/17 0425 01/28/17 0425 Results 24 hrs Laboratory Tests Test 01/28/17 04:25 White Blood Count 9.0 Red Blood Count 3.80 L Hemoglobin 11.8 L Hematocrit 35.6 L Mean Corpuscular Volume 93.7 Mean Corpuscular Hemoglobin 31.1 Mean Corpuscular Hemoglobin Concent 33.1 Red Cell Distribution Width 14.8 H Platelet Count 108 L Mean Platelet Volume 12.2 H Neutrophils % 66.8 Lymphocytes % 17.3 Monocytes % 13.9 H Eosinophils % 1.0 Basophils % 0.6 Nucleated Red Blood Cells % 0.0 Neutrophils # 6.0 Lymphocytes # 1.6 Monocytes # 1.3 H Eosinophils # 0.1 Basophils # 0.1 Nucleated Red Blood Cells # 0.0 Sodium Level 144 Potassium Level 4.2 Chloride Level 109 Carbon Dioxide Level 27 Anion Gap 12 Blood Urea Nitrogen 40 #H Creatinine 2.56 #H Glucose Level 93 Calcium Level 8.8 Total Bilirubin 1.7 #H Direct Bilirubin 0.00 Indirect Bilirubin 1.7 H Aspartate Amino Transf (AST/SGOT) 36 # Alanine Aminotransferase (ALT/SGPT) 36 Alkaline Phosphatase 40 L Total Protein 6.2 Albumin 3.5 Globulin 2.70 Albumin/Globulin Ratio 1.29 Medications Medications Current Medications Ondansetron HCl (Zofran Inj) 4 mg Q6H PRN IV NAUSEA AND/OR VOMITING; Start at 17:30 Acetaminophen (Tylenol Tab) 650 mg Q6H PRN PO PAIN LEVEL 1-3 OR FEVER Last administered on 01/28/17 00:51; Admin Dose 650 MG; Start 01/26/17 at 17:30 Acetaminophen/ Hydrocodone Bitart ([place] (5/325)) 1 tab Q6H PRN PO MODERATE PAIN LEVEL 4-6 Last administered on 01/26/17 20:53; Admin Dose 1 TAB; Start 01/26/17 at 17:30 Docusate Sodium (Colace) 100 mg Q12H PRN PO CONSTIPATION; Start 01/26/17 at 17 :30 Magnesium Hydroxide (Milk Of Mag) 30 ml DAILY PRN PO CONSTIPATION; Start 01/26 at 17:30 Pantoprazole (Protonix Tab) 40 mg DAILY@06 PO Last administered on 01/28/17 06:04; Admin Dose 40 MG; Start 01/27/17 at 06:00 Carvedilol (Coreg) 6.25 mg BID PO Last administered on 01/28/17 08:42; Admin Dose 6.25 MG; Start 01/26/17 at 21:00 Atorvastatin Calcium 20 mg 20 mg HS PO Last administered on 01/27/17 20:57; Admin Dose 20 MG; Start 01/26/17 at 21:00 Ceftriaxone Sodium (Rocephin) 50 ml @ 100 mls/hr Q24H IVPB Last administered on 01/27/17 17:09; Admin Dose 100 MLS/HR; Start 01/26/17 at 18:30 TAMMY LARA MD Jan 28, 2017 16:54
[2017-01-28] MEDS: CEFTRIAXONE 1 GM/50 ML (PMX) 50 ML IVPB SCH (17:30)
[2017-01-28 17:42] LABS: PSA, FREE 0.6 ng/mL
[2017-01-28 19:52] LABS: PTH CALCIUM 8.6 mg/dL (8.6-10.3)
[2017-01-28 20:18] VITALS: BP 144/89; RESP 20
[2017-01-28] MEDS: ATORVASTATIN 20 MG TAB PO SCH (20:58)
[2017-01-29] VITALS (18 sets, daily range): BP systolic 96–133; BP diastolic 56–80; PULSE 55–80; RESP 10–20
[2017-01-29] MEDS: PANTOPRAZOLE (EC) 40 MG TAB PO SCH (03:49)
[2017-01-29 05:20] LABS: BASOPHILS % 0.4 % (0.0-2.0); EOSINOPHILS # 0.2 10^3/ul (0.0-0.5); EOSINOPHILS % 2.5 % (0.0-7.0); HEMATOCRIT 37.2 % (42.0-52.0); HEMOGLOBIN 12.6 g/dl (14.0-18.0); LYMPHOCYTES # 1.4 10^3/ul (0.8-2.9); LYMPHOCYTES % 19.8 % (15.0-51.0); MEAN CORPUSCULAR HEMOGLOBIN 31.7 pg (29.0-33.0); MEAN CORPUSCULAR HGB CONC 33.9 g/dl (32.0-37.0); MEAN CORPUSCULAR VOLUME 93.5 fl (82.0-101.0); MEAN PLATELET VOLUME 11.8 fl (7.4-10.4); MONOCYTE # 0.8 10^3/ul (0.3-0.9); MONOCYTES % 11.2 % (0.0-11.0); NEUTROPHIL # 4.8 10^3/ul (1.6-7.5); NEUTROPHILS % 65.8 % (39.0-77.0); PLATELET COUNT 119 10^3/UL (140-415); RED BLOOD COUNT 3.98 10^6/ul (4.70-6.10); RED CELL DISTRIBUTION WIDTH 14.3 % (11.5-14.5); WHITE BLOOD COUNT 7.2 10^3/ul (4.8-10.8)
[2017-01-29 05:57] LABS: CALCIUM 9.1 mg/dl (8.4-10.2); CREATININE 2.32 mg/dl (0.61-1.24)
--- NOTE | 2017-01-29 07:25 | HPN ---
Date/Time of Note Date/Time of Note DATE: 01/29/17 TIME: 07:25 Interval H&P Admission Note Pt. seen H&P reviewed: No system changes CHRISTIANO MUHAMMAD MD Jan 29, 2017 07:25
[2017-01-29] MEDS ORDERED: NEOSTIGMINE 3 MG/3 ML SYRINGE ONE (07:46)
[2017-01-29] MEDS ORDERED: FENTAnyl 50 MCG/ML VIAL ONE ×2 (07:46→09:03)
[2017-01-29] MEDS ORDERED: DEXAMETHASONE 4 MG/ML 1 ML INJ ONE (07:46)
[2017-01-29] MEDS ORDERED: GLYCOPYRROLATE 0.4 MG INJ ONE (07:46)
[2017-01-29] MEDS ORDERED: ROCURONIUM 50 MG INJ ONE (07:46)
[2017-01-29] MEDS ORDERED: ONDANSETRON 4 MG INJ ONE (07:46)
[2017-01-29] MEDS ORDERED: MIDAZOLAM 1 MG/ML 2 ML INJ ONE (07:46)
[2017-01-29] MEDS ORDERED: PROPOFOL 20 ML ONE (07:46)
[2017-01-29] MEDS ORDERED: CEFAZOLIN 1 GM INJ ONE (07:46)
[2017-01-29] MEDS ORDERED: IOHEXOL 300MG/ML 30 ML BTL ONE (07:58)
[2017-01-29] MEDS ORDERED: OXYCODONE/ACETAMINOPHEN (5/325) TAB PO PRN ×2 (08:30)
[2017-01-29] MEDS ORDERED: IPRATROPIUM (NEB) 0.5 MG/2.5 ML AMP HHN PRN (08:30)
[2017-01-29] MEDS ORDERED: ALBUTEROL 0.083% (NEB) 2.5 MG/3 ML AMP HHN PRN (08:30)
[2017-01-29] MEDS ORDERED: DIPHENHYDRAMINE 50 MG INJ IV PRN (08:30)
[2017-01-29] MEDS ORDERED: EPHEDrine SULFATE 50 MG/5 ML SYG IV PRN (08:30)
[2017-01-29] MEDS ORDERED: FENTAnyl 50 MCG/ML VIAL IV PRN ×3 (08:30)
[2017-01-29] MEDS ORDERED: TRIMETHOBENZAMIDE 100 MG/ML VIAL IM PRN (08:30)
[2017-01-29] MEDS ORDERED: LABETALOL HCL 20MG INJ IV PRN (08:30)
[2017-01-29] MEDS ORDERED: MEPERIDINE 25 MG INJ IV PRN (08:30)
[2017-01-29] MEDS ORDERED: HYDROmorphONE (0.2 MG/ML) 10ML SYG IV PRN ×3 (08:30)
[2017-01-29] MEDS ORDERED: MIDAZOLAM 1 MG/ML 2 ML INJ IV PRN (08:30)
[2017-01-29] MEDS ORDERED: hydrALAzine 20 MG INJ IV PRN (08:30)
[2017-01-29] MEDS ORDERED: ONDANSETRON 4 MG INJ IV PRN (08:30)
[2017-01-29] MEDS ORDERED: SUGAMMADEX SODIUM 200 MG/2 ML VIAL IV ONE (09:06)
--- NOTE | 2017-01-29 09:43 | OPR ---
Date/Time of Note Date/Time of Note DATE: 01/29/17 TIME: 09:32 Operative Report Procedure Date: Jan 29, 2017 Preoperative Diagnosis Gross hematuria and renal failure Postoperative Diagnosis Gross hematuria, renal failure, urethral trauma from prior catheter insertion. Operation/Procedure Performed Ureteroscopy, insertion of suprapubic catheter Surgeon see signature line Earthmoving Labourer None Anesthesia Type: general Anesthesiologist: Jez Espinoza M.D. Estimated Blood Loss: 10 - 50 ml's Transfusion none Specimen None Grafts/Implants none Complications none Pt Condition Post Procedure: stable Disposition: PACU Indications Gross hematuria and renal failure Procedure Description The patient was brought to the operating room, was given general endotracheal anesthesia. He was positioned in the lithotomy position. He was given 2 g of Ancef at the start of the procedure. Timeout was done the patient was identified by his name birthdate and the procedure. The genital area was prepped and draped in the usual sterile manner. #21 Armenian cystoscope was then introduced into the urethra and as it reached the bulbous urethra one could see all red and disrupted urethra and hemorrhage. No identifiable opening that will suggest a urethra. I did use a 0.035 sensor wire and tried to inserted into any opening that could be the urethra and that was not successful I did use fluoroscopy also to see where the wire is going and every time I inserted it goes into a blind area. Then I used a 4 Armenian whistle tip catheter thinking that it is a little firmer than the sensor wire and see if that would help identifying the urethral channel. This was also not successful. As it was impossible to do the cystoscopy because of the urethral blockage I decided to insert a suprapubic tube. I called the forest technician and did a pelvic ultrasound to confirm that the bladder is distended and then shaved and prepped the suprapubic area. I used a 22-gauge spinal needle to do a bladder puncture first to make sure I am in the proper position, clear urine drained out from the spinal needle . I removed the spinal needle and made an incision where it was on the skin then using the suprapubic trocar I did the bladder puncture and inserted a 12 Armenian catheter into the bladder. Inflated the balloon was 10 mL of sterile water and the position of the suprapubic tube was confirmed with the ultrasound showing the balloon inside the bladder. The suprapubic tube was then connected to a drainage bag and the patient was transferred to recovery room in a stable and satisfactory condition. CHRISTIANO MUHAMMAD MD Jan 29, 2017 09:43
--- NOTE | 2017-01-29 10:35 | RADRPT ---
PROCEDURE: US Bladder. CLINICAL INDICATION: Bladder outlet obstruction. TECHNIQUE: Multiple sonographic of the bladder were obtained in the operating room for suprapubic catheter placement guidance. No radiologist was in attendance. The images were reviewed on a PACS tydy. COMPARISON: CT scan of the abdomen and pelvis dated 01/26/2017. FINDINGS: The initial images demonstrate the bladder with a small amount of debris. The final images demonstrate a balloon tipped catheter in the bladder. IMPRESSION: 1. Intraoperative imaging of the bladder for catheter placement.. RPTAT: QQ .Rafael Lopes MD, Date Time Electronically viewed and signed by .Rafael Lopes MD, on 01/29/2017 10:35 .R/
[2017-01-29] MEDS ORDERED: CEPASTAT LOZENGE MT PRN (14:00)
--- NOTE | 2017-01-29 14:22 | PN ---
Date/Time of Note Date/Time of Note DATE: 01/29/17 TIME: 14:11 Assessment/Plan VTE Prophylaxis VTE Prophylaxis Intervention: contraindicated Lines/Catheters IV Catheter Type (from Nrs): Peripheral IV Urinary Cath still in place: Yes Reason Cath still needed: urinary retention Assessment/Plan Assessment/Plan 1. Acute renal failure, most likely secondary to obstruction - Nephrology on board and recommendations appreciated. - Encourage PO intake and renal function has been improving - Patient found to have Cr of 5 with G[facility] 12 [facility] - Will avoid nephrotoxic agents and renally dose medications 2. Acute painless hematuria - Urology consulted and appreciate recommendations. Patient underwent cystoscopy this am 01/29 but unable to performed successfully secondary to urethral obstruction. Awaiting urology findings. Has suprapubic cath in place draining clear urine - PSA 3.6 3. ?Urinary tract infection - +UA and urine cultures showing no growth which is most likely from being on antibiotics at time of studies - Currently on IV Ceftriaxone day 3 - WBC normalizing 4. CAD s/p stent 1 year ago - Will hold off on restarting Aspirin secondary to hematuria - Continue on BB and statin 5. Elevated Bilirubin - CT abd did not show any abnormality and patient denies any abdominal discomfort - Trending downward 6. Disposition - continue monitoring in med/surg Subjective 24 Hr Interval Summary Free Text/Dictation Patient is s/p procedure this am and states still experiencing discomfort from urethra. He also has some discomfort of his throat and having difficulty swallowing solid foods. No acute overnight events. Has suprapubic catheter in place and draining clear urine. Exam/Review of Systems Vital Signs Vitals Vital Signs Date Time Temp Pulse Resp B/P Pulse Ox O2 Delivery O2 Flow Rate FiO2 01/29/17 13:48 98.4 61 17 121/77 100 01/29/17 12:15 Nasal Cannula 2.0 Intake and Output 01/28/17 01/28/17 01/29/17 15:00 23:00 07:00 Intake Total 2370 ml 500 ml Output Total 1610 ml 750 ml Balance 760 ml -250 ml Exam Constitutional: alert, oriented, well developed, No distress Head: atraumatic, normocephalic Eyes: EOMI, PERRL ENMT: mucosa pink and moist Respiratory: clear to auscultation, normal air movement, No crackles/rales, No wheezing Cardiovascular: nl pulses, regular rate and rhythm, No murmurs/extra sounds, No systolic murmur Gastrointestinal: bowel sounds, non-tender, soft, No distended, No firm, No rebound or guarding. 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 II-XII intact, nl mental status Results Result Diagram: 01/29/17 0437 01/29/177 Results 24 hrs Laboratory Tests Test 01/29/17 04:37 White Blood Count 7.2 Red Blood Count 3.98 L Hemoglobin 12.6 L Hematocrit 37.2 L Mean Corpuscular Volume 93.5 Mean Corpuscular Hemoglobin 31.7 Mean Corpuscular Hemoglobin Concent 33.9 Red Cell Distribution Width 14.3 Platelet Count 119 L Mean Platelet Volume 11.8 H Neutrophils % 65.8 Lymphocytes % 19.8 Monocytes % 11.2 H Eosinophils % 2.5 Basophils % 0.4 Nucleated Red Blood Cells % 0.0 Neutrophils # 4.8 Lymphocytes # 1.4 Monocytes # 0.8 Eosinophils # 0.2 Basophils # 0.0 Nucleated Red Blood Cells # 0.0 Sodium Level 146 H Potassium Level 4.0 Chloride Level 109 Carbon Dioxide Level 29 Anion Gap 12 Blood Urea Nitrogen 32 H Creatinine 2.32 H Glucose Level 104 Calcium Level 9.1 Medications Medications Current Medications Ondansetron HCl (Zofran Inj) 4 mg Q6H PRN IV NAUSEA AND/OR VOMITING; Start at 17:30 Acetaminophen (Tylenol Tab) 650 mg Q6H PRN PO PAIN LEVEL 1-3 OR FEVER Last administered on 01/28/17 00:51; Admin Dose 650 MG; Start 01/26/17 at 17:30 Acetaminophen/ Hydrocodone Bitart ([place] (5/325)) 1 tab Q6H PRN PO MODERATE PAIN LEVEL 4-6 Last administered on 01/26/17 20:53; Admin Dose 1 TAB; Start 01/26/17 at 17:30 Docusate Sodium (Colace) 100 mg Q12H PRN PO CONSTIPATION; Start 01/26/17 at 17 :30 Magnesium Hydroxide (Milk Of Mag) 30 ml DAILY PRN PO CONSTIPATION; Start 01/26 at 17:30 Pantoprazole (Protonix Tab) 40 mg DAILY@06 PO Last administered on 01/28/17 06:04; Admin Dose 40 MG; Start 01/27/17 at 06:00 Carvedilol (Coreg) 6.25 mg BID PO Last administered on 01/29/17 12:59; Admin Dose 6.25 MG; Start 01/26/17 at 21:00 Atorvastatin Calcium 20 mg 20 mg HS PO Last administered on 01/28/17 20:58; Admin Dose 20 MG; Start 01/26/17 at 21:00 Ceftriaxone Sodium (Rocephin) 50 ml @ 100 mls/hr Q24H IVPB Last administered on 01/28/17 17:30; Admin Dose 100 MLS/HR; Start 01/26/17 at 18:30 Phenol (Cepastat Lozenge) 1 lozenge Q1H PRN MT sore throat Last administered on 01/29/17 14:07; Admin Dose 1 LOZENGE; Start 01/29/17 at 14:00 IRVING BACON MD Jan 29, 2017 14:22
[2017-01-29] MEDS ORDERED: BENZOCAINE 20% 56 ML SPRAY TOP PRN (14:30)
--- NOTE | 2017-01-29 14:33 | RADRPT ---
PROCEDURE: Intraoperative imaging of the pelvis with fluoroscopy. CLINICAL INDICATION: Bladder outlet obstruction. Intraoperative. TECHNIQUE: 2 images of the pelvis were obtained in the operating room with an image intensifier. No radiologist was in attendance. 13.5 seconds of fluoroscopy time was used. COMPARISON: CT scan of the abdomen and pelvis dated 01/26/2017. FINDINGS: The images demonstrate a cystoscope overlying the perineum. IMPRESSION: 1. Limited intraoperative imaging of the pelvis. RPTAT: QQ .Rafael Lopes MD, Date Time Electronically viewed and signed by .Rafael Lopes MD, on 01/29/2017 14:32 .R/
--- NOTE | 2017-01-29 15:36 | CONS ---
Date/Time of Note Date/Time of Note DATE: 01/29/17 TIME: 15:33 Assessment/Plan Assessment/Plan Chief Complaint/Hosp Course 1. Acute renal failure. This patient most likely had some obstructive uropathy. Renal function is improving, continue to monitor 2. Coronary artery disease 3. Chronic bladder outlet obstruction. s/p suprapubic catheter insertion. Problems: Consultation Date/Type/Reason Admit Date/Time Jan 26, 2017 at 16:18 Initial Consult Date 01/27/17 Type of Consultation: Nephrology Referring Provider: IRVING BACON MD 24 HR Interval Summary Free Text/Dictation s/p suprapubic catheter placement this am. no complaints. Exam/Review of Systems Vital Signs Vitals Vital Signs Date Time Temp Pulse Resp B/P Pulse Ox O2 Delivery O2 Flow Rate FiO2 01/29/17 13:48 98.4 61 17 121/77 100 01/29/17 12:15 Nasal Cannula 2.0 Intake and Output 01/28/17 01/28/17 01/29/17 15:00 23:00 07:00 Intake Total 2370 ml 500 ml Output Total 1610 ml 750 ml Balance 760 ml -250 ml Exam Constitutional: alert Neck: supple, No jvd Respiratory: clear to auscultation Cardiovascular: regular rate and rhythm Gastrointestinal: non-tender, other (suprapubic catheter), soft Results Result Diagram: 01/29/17 0437 01/29/17 0437 Results 24 hrs Laboratory Tests Test 01/29/17 04:37 White Blood Count 7.2 Red Blood Count 3.98 L Hemoglobin 12.6 L Hematocrit 37.2 L Mean Corpuscular Volume 93.5 Mean Corpuscular Hemoglobin 31.7 Mean Corpuscular Hemoglobin Concent 33.9 Red Cell Distribution Width 14.3 Platelet Count 119 L Mean Platelet Volume 11.8 H Neutrophils % 65.8 Lymphocytes % 19.8 Monocytes % 11.2 H Eosinophils % 2.5 Basophils % 0.4 Nucleated Red Blood Cells % 0.0 Neutrophils # 4.8 Lymphocytes # 1.4 Monocytes # 0.8 Eosinophils # 0.2 Basophils # 0.0 Nucleated Red Blood Cells # 0.0 Sodium Level 146 H Potassium Level 4.0 Chloride Level 109 Carbon Dioxide Level 29 Anion Gap 12 Blood Urea Nitrogen 32 H Creatinine 2.32 H Glucose Level 104 Calcium Level 9.1 Medications Medications Current Medications Ondansetron HCl (Zofran Inj) 4 mg Q6H PRN IV NAUSEA AND/OR VOMITING; Start at 17:30 Acetaminophen (Tylenol Tab) 650 mg Q6H PRN PO PAIN LEVEL 1-3 OR FEVER Last administered on 01/28/17 00:51; Admin Dose 650 MG; Start 01/26/17 at 17:30 Acetaminophen/ Hydrocodone Bitart ([place] (5/325)) 1 tab Q6H PRN PO MODERATE PAIN LEVEL 4-6 Last administered on 01/26/17 20:53; Admin Dose 1 TAB; Start 01/26/17 at 17:30 Docusate Sodium (Colace) 100 mg Q12H PRN PO CONSTIPATION; Start 01/26/17 at 17 :30 Magnesium Hydroxide (Milk Of Mag) 30 ml DAILY PRN PO CONSTIPATION; Start 01/26 at 17:30 Pantoprazole (Protonix Tab) 40 mg DAILY@06 PO Last administered on 01/28/17 06:04; Admin Dose 40 MG; Start 01/27/17 at 06:00 Carvedilol (Coreg) 6.25 mg BID PO Last administered on 01/29/17 12:59; Admin Dose 6.25 MG; Start 01/26/17 at 21:00 Atorvastatin Calcium 20 mg 20 mg HS PO Last administered on 01/28/17 20:58; Admin Dose 20 MG; Start 01/26/17 at 21:00 Ceftriaxone Sodium (Rocephin) 50 ml @ 100 mls/hr Q24H IVPB Last administered on 01/28/17 17:30; Admin Dose 100 MLS/HR; Start 01/26/17 at 18:30 Phenol (Cepastat Lozenge) 1 lozenge Q1H PRN MT sore throat Last administered on 01/29/17 14:07; Admin Dose 1 LOZENGE; Start 01/29/17 at 14:00 YUKI WIN MD Jan 29, 2017 15:36 YUKI WIN MD Jan 29, 2017 15:36
[2017-01-29] MEDS: CEFTRIAXONE 1 GM/50 ML (PMX) 50 ML IVPB SCH (17:30)
[2017-01-29] MEDS: ATORVASTATIN 20 MG TAB PO SCH (20:36)
[2017-01-30 01:54] VITALS: BP 104/56; RESP 19
[2017-01-30] MEDS: PANTOPRAZOLE (EC) 40 MG TAB PO SCH (06:29)
[2017-01-30 08:01] VITALS: BP 135/71; RESP 18
--- NOTE | 2017-01-30 11:32 | PN ---
Date/Time of Note Date/Time of Note DATE: 01/30/17 TIME: 11:24 Assessment/Plan VTE Prophylaxis VTE Prophylaxis Intervention: other Lines/Catheters [facility] Saline Lock Urinary Cath still in place: No Assessment/Plan Assessment/Plan 1. Acute renal failure, most likely secondary to obstruction - Nephrology on board and recommendations appreciated. - Encourage PO intake and renal function has been improving. Repeat labs pending - Patient found to have Cr of 5 with GFR 12 on labs performed at [facility] - Will avoid nephrotoxic agents and renally dose medications 2. Acute painless hematuria - Urology consulted and appreciate recommendations. Patient underwent cystoscopy 01/29 but unable to performed successfully secondary to urethral obstruction. Has suprapubic cath in place draining clear urine - PSA 3.6 3. ?Urinary tract infection - +UA and urine cultures showing no growth which is most likely from being on antibiotics at time of studies - Currently on IV Ceftriaxone day 4 - remains afebrile 4. CAD s/p stent 1 year ago - Will hold off on restarting Aspirin - Continue on BB and statin 5. Elevated Bilirubin - CT abd did not show any abnormality and patient denies any abdominal discomfort - Trending downward 6. Disposition - continue monitoring in med/surg - Awaiting further recommendations from Urology Subjective 24 Hr Interval Summary Free Text/Dictation Patient doing well and sore throat improving with lozenges. Catheter in place with no discomfort. Denies any new complaints or any overnight events. Exam/Review of Systems Vital Signs Vitals Vital Signs Date Time Temp Pulse Resp B/P Pulse Ox O2 Delivery O2 Flow Rate FiO2 01/30/17 08:01 98.3 61 18 135/71 95 01/29/17 12:15 Nasal Cannula 2.0 Intake and Output 01/29/17 01/29/17 01/30/17 15:00 23:00 07:00 Intake Total 1200 ml 1350 ml 800 ml Output Total 1050 ml 2900 ml 1300 ml Balance 150 ml -1550 ml -500 ml Exam Constitutional: alert, oriented, well developed, No distress Head: atraumatic, normocephalic Eyes: EOMI, PERRL ENMT: mucosa pink and moist Respiratory: clear to auscultation, normal air movement, No crackles/rales, No wheezing Cardiovascular: nl pulses, regular rate and rhythm, No murmurs/extra sounds Gastrointestinal: bowel sounds, non-tender, soft, No distended, No firm, No rebound or guarding. 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 intact, nl mental status Results Result Diagram: 01/29/1743601/29/17436 Medications Medications Current Medications Ondansetron HCl (Zofran Inj) 4 mg Q6H PRN IV NAUSEA AND/OR VOMITING; Start at 17:30 Acetaminophen (Tylenol Tab) 650 mg Q6H PRN PO PAIN LEVEL 1-3 OR FEVER Last administered on 01/28/17 00:51; Admin Dose 650 MG; Start 01/26/17 at 17:30 Acetaminophen/ Hydrocodone Bitart ([place] (5/325)) 1 tab Q6H PRN PO MODERATE PAIN LEVEL 4-6 Last administered on 01/26/17 20:53; Admin Dose 1 TAB; Start 01/26/17 at 17:30 Docusate Sodium (Colace) 100 mg Q12H PRN PO CONSTIPATION; Start 01/26/17 at 17 :30 Magnesium Hydroxide (Milk Of Mag) 30 ml DAILY PRN PO CONSTIPATION; Start 01/26 at 17:30 Pantoprazole (Protonix Tab) 40 mg DAILY@06 PO Last administered on 01/30/17 06:29; Admin Dose 40 MG; Start 01/27/17 at 06:00 Carvedilol (Coreg) 6.25 mg BID PO Last administered on 01/30/17 08:38; Admin Dose 6.25 MG; Start 01/26/17 at 21:00 Atorvastatin Calcium 20 mg 20 mg HS PO Last administered on 01/29/17 20:36; Admin Dose 20 MG; Start 01/26/17 at 21:00 Ceftriaxone Sodium (Rocephin) 50 ml @ 100 mls/hr Q24H IVPB Last administered on 01/29/17 17:30; Admin Dose 100 MLS/HR; Start 01/26/17 at 18:30 Phenol (Cepastat Lozenge) 1 lozenge Q1H PRN MT sore throat Last administered on 01/29/17 14:07; Admin Dose 1 LOZENGE; Start 01/29/17 at 14:00 IRVING BACON MD Jan 30, 2017 11:32
[2017-01-30] MEDS ORDERED: HYDROCODONE/APAP (10/325) TAB PO PRN (12:30)
[2017-01-30] MEDS ORDERED: HYDROmorphONE 0.5 MG/0.5 ML SYG IV PRN (12:30)
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
[2017-01-30] MEDS: ACETAMINOPHEN 325 MG TAB PO PRN (14:52)
--- NOTE | 2017-01-30 15:26 | CONS ---
Date/Time of Note Date/Time of Note DATE: 01/30/17 TIME: 15:22 Assessment/Plan Assessment/Plan Chief Complaint/Hosp Course 1. Acute renal failure due to obstructive uropathy. Renal function improving post suprapubic tube placement 2. Coronary artery disease 3. Chronic bladder outlet obstruction. s/p suprapubic catheter insertion. Problems: Consultation Date/Type/Reason Admit Date/Time Jan 26, 2017 at 16:18 Initial Consult Date 01/27/17 Type of Consultation: Nephrology Referring Provider: IRVING BACON MD 24 HR Interval Summary Free Text/Dictation Sore throat Exam/Review of Systems Vital Signs Vitals Vital Signs Date Time Temp Pulse Resp B/P Pulse Ox O2 Delivery O2 Flow Rate FiO2 01/30/17 08:01 98.3 61 18 135/71 95 01/29/17 12:15 Nasal Cannula 2.0 Intake and Output 01/29/17 01/29/17 01/30/17 14:59 22:59 06:59 Intake Total 1200 ml 1350 ml 800 ml Output Total 1050 ml 2900 ml 1300 ml Balance 150 ml -1550 ml -500 ml Exam Constitutional: alert Head: atraumatic, normocephalic Neck: supple, No jvd Respiratory: clear to auscultation Cardiovascular: regular rate and rhythm Gastrointestinal: soft, No non-tender Extremities: No edema Results Result Diagram: 01/29/1743601/29/17436 Medications Medications Current Medications Ondansetron HCl (Zofran Inj) 4 mg Q6H PRN IV NAUSEA AND/OR VOMITING; Start at 17:30 Acetaminophen (Tylenol Tab) 650 mg Q6H PRN PO PAIN LEVEL 1-3 OR FEVER Last administered on 01/30/17 14:52; Admin Dose 650 MG; Start 01/26/17 at 17:30 Acetaminophen/ Hydrocodone Bitart ([place] (5/325)) 1 tab Q6H PRN PO MODERATE PAIN LEVEL 4-6 Last administered on 01/26/17 20:53; Admin Dose 1 TAB; Start 01/26/17 at 17:30 Docusate Sodium (Colace) 100 mg Q12H PRN PO CONSTIPATION; Start 01/26/17 at 17 :30 Magnesium Hydroxide (Milk Of Mag) 30 ml DAILY PRN PO CONSTIPATION; Start 01/26 at 17:30 Pantoprazole (Protonix Tab) 40 mg DAILY@06 PO Last administered on 01/30/17 06:29; Admin Dose 40 MG; Start 01/27/17 at 06:00 Carvedilol (Coreg) 6.25 mg BID PO Last administered on 01/30/17 08:38; Admin Dose 6.25 MG; Start 01/26/17 at 21:00 Atorvastatin Calcium 20 mg 20 mg HS PO Last administered on 01/29/17 20:36; Admin Dose 20 MG; Start 01/26/17 at 21:00 Ceftriaxone Sodium (Rocephin) 50 ml @ 100 mls/hr Q24H IVPB Last administered on 01/29/17 17:30; Admin Dose 100 MLS/HR; Start 01/26/17 at 18:30 Phenol (Cepastat Lozenge) 1 lozenge Q1H PRN MT sore throat Last administered on 01/29/17 14:07; Admin Dose 1 LOZENGE; Start 01/29/17 at 14:00 YUKI WIN MD Jan 30, 2017 15:25
[2017-01-30 15:57] VITALS: BP 120/69; RESP 18
[2017-01-30] MEDS: CEFTRIAXONE 1 GM/50 ML (PMX) 50 ML IVPB SCH (18:30)
[2017-01-30 19:40] VITALS: BP 122/75; RESP 19
[2017-01-30] MEDS: ATORVASTATIN 20 MG TAB PO SCH (20:41)
[2017-01-31 02:37] VITALS: BP 116/66
[2017-01-31] MEDS: PANTOPRAZOLE (EC) 40 MG TAB PO SCH (05:56)
[2017-01-31 06:18] LABS: BASOPHILS % 0.6 % (0.0-2.0); EOSINOPHILS # 0.1 10^3/ul (0.0-0.5); EOSINOPHILS % 1.7 % (0.0-7.0); HEMATOCRIT 34.1 % (42.0-52.0); HEMOGLOBIN 11.4 g/dl (14.0-18.0); LYMPHOCYTES % 30.5 % (15.0-51.0); MEAN CORPUSCULAR HEMOGLOBIN 31.7 pg (29.0-33.0); MEAN CORPUSCULAR HGB CONC 33.4 g/dl (32.0-37.0); MEAN CORPUSCULAR VOLUME 94.7 fl (82.0-101.0); MONOCYTE # 0.6 10^3/ul (0.3-0.9); MONOCYTES % 9.2 % (0.0-11.0); NEUTROPHIL # 3.8 10^3/ul (1.6-7.5); NEUTROPHILS % 57.7 % (39.0-77.0); PLATELET COUNT 121 10^3/UL (140-415); WHITE BLOOD COUNT 6.6 10^3/ul (4.8-10.8)
[2017-01-31 06:39] LABS: CALCIUM 8.8 mg/dl (8.4-10.2); CREATININE 1.75 mg/dl (0.61-1.24); POTASSIUM 3.6 mmol/L (3.5-5.1)
[2017-01-31 06:49] LABS: ALBUMIN 3.2 g/dl (3.3-4.9); CALCIUM 8.5 mg/dl (8.4-10.2); CREATININE 1.72 mg/dl (0.61-1.24); POTASSIUM 3.8 mmol/L (3.5-5.1)
[2017-01-31 07:52] VITALS: BP 136/83; RESP 18
--- NOTE | 2017-01-31 09:46 | PDOCDIS ---
Discharge Instructions CONDITION Patient Condition: Stable HOME CARE INSTRUCTIONS: Special Diet: LOW CHOLESTEROL DIET ACTIVITY: Activity Restrictions: Slowly Increase Activity FOLLOW UP/APPOINTMENTS Follow-up Plan 1. Follow up with your primary care provider as soon as possible for nephrology (kidney) and urology (urinary) referrals 2. Follow up with Dr. Sykes ( nephrology) and Dr. Marsh (urology) if possible with insurance 3. Take all medications as directed 4. Restart aspirin with okay from primary care provider 5. Please see control panel builder as soon as possible. DEREK MERRITT Jan 31, 2017 09:46
[2017-01-31] MEDS ORDERED: CIPR-193 PO (09:49)
[2017-01-31] MEDS ORDERED: ATOR20TA65 PO (09:49)
[2017-01-31] MEDS ORDERED: CARV6.2579 PO (09:49)
--- NOTE | 2017-01-31 09:51 | CONS ---
Date/Time of Note Date/Time of Note DATE: 01/31/17 TIME: 09:44 Assessment/Plan Assessment/Plan Chief Complaint/Hosp Course 1. Acute renal failure. This patient most likely had some obstructive uropathy , which seems to have resolved . His renal function is improving . He had a cystoscopy and retrograde cystogram. He then had a suprapubic catheter placed. He has a urethral stricture. His renal function has improved his creatinine is now at 1.75 with an estimated GFR of 51. He could be discharged home today. I gave the patient my phone number and told him to make an appointment to see me in my office in the next week. He also will see his PCP and should follow-up with Dr. Santana . 2. Coronary artery disease 3. Possible urinary tract infection , although cultures here have been no growth . He will be sent home on Cipro 250 mg twice a day because of the indwelling suprapubic tube. Problems: Consultation Date/Type/Reason Admit Date/Time Jan 26, 2017 at 16:18 Initial Consult Date 01/27/17 Type of Consultation: Nephrology Referring Provider: IRVING BACON MD 24 HR Interval Summary Free Text/Dictation The patient is awake and alert. He denies any chest pain or shortness of breath. He does have a suprapubic tube in place. Constitutional: improved, no complaints Exam/Review of Systems Vital Signs Vitals Vital Signs Date Time Temp Pulse Resp B/P Pulse Ox O2 Delivery O2 Flow Rate FiO2 01/31/17 07:52 98.0 63 18 136/83 96 01/29/17 12:15 Nasal Cannula 2.0 Intake and Output 01/30/17 01/30/17 01/31/17 15:00 23:00 07:00 Intake Total 1890 ml 800 ml Output Total 1700 ml 2000 ml Balance 190 ml -1200 ml Exam Constitutional: alert, oriented, well developed Respiratory: clear to auscultation, normal air movement Cardiovascular: regular rate and rhythm Gastrointestinal: nl liver, spleen, non-tender, soft Musculoskeletal: nl extremities to inspection Results Result Diagram: 01/31/170 01/31/17439 Results 24 hrs Laboratory Tests Test 01/31/17 04:40 White Blood Count 6.6 Red Blood Count 3.60 L Hemoglobin 11.4 L Hematocrit 34.1 L Mean Corpuscular Volume 94.7 Mean Corpuscular Hemoglobin 31.7 Mean Corpuscular Hemoglobin Concent 33.4 Red Cell Distribution Width 14.0 Platelet Count 121 L Mean Platelet Volume 12.0 H Neutrophils % 57.7 Lymphocytes % 30.5 Monocytes % 9.2 Eosinophils % 1.7 Basophils % 0.6 Nucleated Red Blood Cells % 0.0 Neutrophils # 3.8 Lymphocytes # 2.0 Monocytes # 0.6 Eosinophils # 0.1 Basophils # 0.0 Nucleated Red Blood Cells # 0.0 Sodium Level 144 Potassium Level 3.6 Chloride Level 110 Carbon Dioxide Level 28 Anion Gap 10 Blood Urea Nitrogen 32 H Creatinine 1.75 H Glucose Level 93 Calcium Level 8.8 Phosphorus Level 4.0 Magnesium Level 2.0 Albumin 3.2 L Medications Medications Current Medications Ondansetron HCl (Zofran Inj) 4 mg Q6H PRN IV NAUSEA AND/OR VOMITING; Start at 17:30 Acetaminophen (Tylenol Tab) 650 mg Q6H PRN PO PAIN LEVEL 1-3 OR FEVER Last administered on 01/30/17 14:52; Admin Dose 650 MG; Start 01/26/17 at 17:30 Acetaminophen/ Hydrocodone Bitart ([place] (5/325)) 1 tab Q6H PRN PO MODERATE PAIN LEVEL 4-6 Last administered on 01/26/17 20:53; Admin Dose 1 TAB; Start 01/26/17 at 17:30 Docusate Sodium (Colace) 100 mg Q12H PRN PO CONSTIPATION; Start 01/26/17 at 17 :30 Magnesium Hydroxide (Milk Of Mag) 30 ml DAILY PRN PO CONSTIPATION; Start 01/26 at 17:30 Pantoprazole (Protonix Tab) 40 mg DAILY@06 PO Last administered on 01/31/17 05:56; Admin Dose 40 MG; Start 01/27/17 at 06:00 Carvedilol (Coreg) 6.25 mg BID PO Last administered on 01/31/17 08:37; Admin Dose 6.25 MG; Start 01/26/17 at 21:00 Atorvastatin Calcium 20 mg 20 mg HS PO Last administered on 01/30/17 20:41; Admin Dose 20 MG; Start 01/26/17 at 21:00 Ceftriaxone Sodium (Rocephin) 50 ml @ 100 mls/hr Q24H IVPB Last administered on 01/30/17 18:30; Admin Dose 100 MLS/HR; Start 01/26/17 at 18:30 Phenol (Cepastat Lozenge) 1 lozenge Q1H PRN MT sore throat Last administered on 01/29/17 14:07; Admin Dose 1 LOZENGE; Start 01/29/17 at 14:00 TAMMY LARA MD Jan 31, 2017 09:51
--- NOTE | 2017-01-31 13:19 | PN ---
Date/Time of Note Date/Time of Note DATE: 01/31/17 TIME: 13:13 Assessment/Plan VTE Prophylaxis VTE Prophylaxis Intervention: ambulation, SCD's Lines/Catheters IV Catheter Type (from Nrs): [place] Urinary Cath still in place: No Assessment/Plan Chief Complaint/Hosp Course 61-year old male status post insertion of suprapubic tube. His urethra was injured from prior catheterization attempts. The suprapubic tube is draining well, the urine is clear. He should be able to go home with the suprapubic tube and follow-up in the office later Problems: Subjective 24 Hr Interval Summary Constitutional: no complaints Eyes: no complaints Respiratory: no complaints Cardiovascular: No chest pain, No edema Gastrointestinal: No nausea, No pain, No vomiting Genitourinary: other (Suprapubic tube draining clear urine) Musculoskeletal: no complaints Skin: no complaints Neurologic: no complaints Psychological: no complaints Exam/Review of Systems Vital Signs Vitals Vital Signs Date Time Temp Pulse Resp B/P Pulse Ox O2 Delivery O2 Flow Rate FiO2 01/31/17 07:52 98.0 63 18 136/83 96 01/29/17 12:15 Nasal Cannula 2.0 Intake and Output 01/30/17 01/30/17 01/31/17 15:00 23:00 07:00 Intake Total 1890 ml 800 ml Output Total 1700 ml 2000 ml Balance 190 ml -1200 ml Exam Constitutional: alert, oriented Psych: no complaints Eyes: nl conjunctiva ENMT: nl external ears & nose Neck: non-tender Respiratory: normal air movement Cardiovascular: No edema Gastrointestinal: soft Genitourinary - Male: nl penis (No bleeding from the urethra), other ( Suprapubic tube draining clear urine) Extremities: No calf tenderness, No edema Results Result Diagram: 01/31/1743901/31/17439 Results 24 hrs Laboratory Tests Test 01/31/17 04:40 White Blood Count 6.6 Red Blood Count 3.60 L Hemoglobin 11.4 L Hematocrit 34.1 L Mean Corpuscular Volume 94.7 Mean Corpuscular Hemoglobin 31.7 Mean Corpuscular Hemoglobin Concent 33.4 Red Cell Distribution Width 14.0 Platelet Count 121 L Mean Platelet Volume 12.0 H Neutrophils % 57.7 Lymphocytes % 30.5 Monocytes % 9.2 Eosinophils % 1.7 Basophils % 0.6 Nucleated Red Blood Cells % 0.0 Neutrophils # 3.8 Lymphocytes # 2.0 Monocytes # 0.6 Eosinophils # 0.1 Basophils # 0.0 Nucleated Red Blood Cells # 0.0 Sodium Level 144 Potassium Level 3.6 Chloride Level 110 Carbon Dioxide Level 28 Anion Gap 10 Blood Urea Nitrogen 32 H Creatinine 1.75 H Glucose Level 93 Calcium Level 8.8 Phosphorus Level 4.0 Magnesium Level 2.0 Albumin 3.2 L Medications Medications Current Medications Ondansetron HCl (Zofran Inj) 4 mg Q6H PRN IV NAUSEA AND/OR VOMITING; Start at 17:30 Acetaminophen (Tylenol Tab) 650 mg Q6H PRN PO PAIN LEVEL 1-3 OR FEVER Last administered on 01/30/17 14:52; Admin Dose 650 MG; Start 01/26/17 at 17:30 Acetaminophen/ Hydrocodone Bitart ([place] (5/325)) 1 tab Q6H PRN PO MODERATE PAIN LEVEL 4-6 Last administered on 01/26/17 20:53; Admin Dose 1 TAB; Start 01/26/17 at 17:30 Docusate Sodium (Colace) 100 mg Q12H PRN PO CONSTIPATION; Start 01/26/17 at 17 :30 Magnesium Hydroxide (Milk Of Mag) 30 ml DAILY PRN PO CONSTIPATION; Start 01/26 at 17:30 Pantoprazole (Protonix Tab) 40 mg DAILY@06 PO Last administered on 01/31/17 05:56; Admin Dose 40 MG; Start 01/27/17 at 06:00 Carvedilol (Coreg) 6.25 mg BID PO Last administered on 01/31/17 08:37; Admin Dose 6.25 MG; Start 01/26/17 at 21:00 Atorvastatin Calcium 20 mg 20 mg HS PO Last administered on 01/30/17 20:41; Admin Dose 20 MG; Start 01/26/17 at 21:00 Ceftriaxone Sodium (Rocephin) 50 ml @ 100 mls/hr Q24H IVPB Last administered on 01/30/17 18:30; Admin Dose 100 MLS/HR; Start 01/26/17 at 18:30 Phenol (Cepastat Lozenge) 1 lozenge Q1H PRN MT sore throat Last administered on 01/29/17 14:07; Admin Dose 1 LOZENGE; Start 01/29/17 at 14:00 CHRISTIANO MUHAMMAD MD Jan 31, 2017 13:19
[2017-01-31 14:30] VITALS: BP 113/66; RESP 18
[2017-01-31] MEDS: CEFTRIAXONE 1 GM/50 ML (PMX) 50 ML IVPB SCH (17:31)
--- NOTE | 2017-01-31 17:31 | DS ---
Date/Time of Note Date/Time of Note DATE: 01/31/17 TIME: 17:31 Discharge Summary Admission/Discharge Info Admit Date/Time Jan 26, 2017 at 16:18 Discharge Date/Time Patient Condition: Stable Hx of Present Illness 61 yo M with PMH CAD s/p stent placement 1 year ago was transferred from [facility] after findings of hematuria and acute renal failure. Patient states he was experiencing burning with urination and well as has been needing to strain to urinate since Tuesday and went to see his PCP on Tuesday. He was diagnosed with a UTI and given a Ciprofloxacin and Flomax. He states he took one tab of Flomax and developed headache, dizziness, and flushing so stopped the medication. He was also told that he had renal failure by his PCP on Tuesday. Patient states this am he woke up with hematuria and still experiencing dysuria. He presented to [facility], blood work was performed, and transferred to [facility] due to insurance. Denies any chest pain, shortness of breath, dizziness, headache, nausea, vomiting, or abdominal issues. Patient denies any recent weight loss. Hospital Course Discharge diagnoses Acute renal failure Obstructive renal failure Acute painless hematuria Elevated PSA Urinary tract infection Coronary artery disease Elevated bilirubin Hospital course Patient is a 61-year-old male with a history of coronary artery disease who was transferred from [place] for hematuria and acute renal failure. Patient was seen by both nephrology and urology during this admission and urology did attempt cystoscopy on patient. However cystoscopy was unsuccessful secondary to likely stricture, thus a suprapubic catheter was placed and orders were made to follow-up with Dr. Marsh in the outpatient setting. Urology believes that the cause of patient's obstructive renal failure may be due to possible bladder tumor will need surveillance in the outpatient setting, including cystoscopy. It was explained at bedside with nephrology in very clear terms that the patient will need to follow-up with urology and nephrology, either the physicians that saw him during this admission, information was given to the patient, or patient must immediately go to his primary care provider today or tomorrow in order to get a referral for nephrology and urology. Patient understands the importance of follow-up and understands to take all medications as directed. 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 Patient understands and will continue to take medications as instructed. Home Meds Active Scripts Ciprofloxacin Hcl* (Ciprofloxacin Hcl*) 250 Mg Tablet, 250 MG PO BID for 10 Days , #20 TAB Prov:DEREK MERRITT 01/31/17 Atorvastatin Calcium (Atorvastatin Calcium) 20 Mg Tablet, 20 MG PO HS for 30 Days, TAB Prov:DEREK MERRITT 01/31/17 Carvedilol* (Carvedilol*) 6.25 Mg Tablet, 6.25 MG PO BID for 30 Days, TAB Prov:DEREK MERRITT 01/31/17 Follow-up Plan 1. Follow up with your primary care provider as soon as possible for nephrology (kidney) and urology (urinary) referrals 2. Follow up with Dr. Sykes ( nephrology) and Dr. Marsh (urology) if possible with insurance 3. Take all medications as directed 4. Restart aspirin with okay from primary care provider 5. Please see guest service host as soon as possible. Primary Care Provider Michelle Goldman Time spent on discharge: > 30 minutes Pending Labs Laboratory Tests Test 01/31/17 04:40 White Blood Count 6.610^3/ul (4.8-10.8) Red Blood Count 3.6010^6/ul (4.70-6.10) Hemoglobin 11.4g/dl (14.0-18.0) Hematocrit 34.1% (42.0-52.0) Mean Corpuscular Volume 94.7fl (82.0-101.0) Mean Corpuscular Hemoglobin 31.7pg (29.0-33.0) Mean Corpuscular Hemoglobin Concent 33.4g/dl (32.0-37.0) Red Cell Distribution Width 14.0% (11.5-14.5) Platelet Count 71833^3/UL (140-415) Mean Platelet Volume 12.0fl (7.4-10.4) Neutrophils % 57.7% (39.0-77.0) Lymphocytes % 30.5% (15.0-51.0) Monocytes % 9.2% (0.0-11.0) Eosinophils % 1.7% (0.0-7.0) Basophils % 0.6% (0.0-2.0) Nucleated Red Blood Cells % 0.0/100WBC (0.0-0.0) Neutrophils # 3.810^3/ul (1.6-7.5) Lymphocytes # 2.010^3/ul (0.8-2.9) Monocytes # 0.610^3/ul (0.3-0.9) Eosinophils # 0.110^3/ul (0.0-0.5) Basophils # 0.010^3/ul (0.0-0.1) Nucleated Red Blood Cells # 0.010^3/ul (0.0-0.0) Sodium Level 144mmol/L (135-144) Potassium Level 3.6mmol/L (3.5-5.1) Chloride Level 110mmol/L (97-110) Carbon Dioxide Level 28mmol/L (21-31) Anion Gap 10 (8-16) Blood Urea Nitrogen 32mg/dl (7-20) Creatinine 1.75mg/dl (0.61-1.24) Glucose Level 93mg/dl (70-220) Calcium Level 8.8mg/dl (8.4-10.2) Phosphorus Level 4.0mg/dl (2.5-4.9) Magnesium Level 2.0mg/dl (1.7-2.5) Albumin 3.2g/dl (3.3-4.9) DEREK MERRITT Jan 31, 2017 17:31
[2017-01-31 19:33] VITALS: BP 124/81; RESP 16
== END 2017-01-31 19:30 | disposition home health service (06) | DRG 683 ==
LOC: MS1 16:18
PROVIDERS: ADMIT Internal Medicine; ATTEND Internal Medicine
PROC: 0TJ98ZZ Inspection of Ureter, Via Natural or Artificial Opening Endoscopic (ICD-10-PCS; 2017-01-29)
PROC: 0T9B30Z Drainage of Bladder with Drainage Device, Percutaneous Approach (ICD-10-PCS; principal; 2017-01-29 07:30)
DX: N17.8 Other acute kidney failure (principal); N39.0 Urinary tract infection, site not specified; S37.39XA Other injury of urethra, initial encounter; E78.5 Hyperlipidemia, unspecified; I25.10 Atherosclerotic heart disease of native coronary artery without angina pectoris; R31.0 Gross hematuria; N13.9 Obstructive and reflux uropathy, unspecified; N32.0 Bladder-neck obstruction; N35.9 Urethral stricture, unspecified; I25.2 Old myocardial infarction; R97.20 Elevated prostate specific antigen [PSA]; E80.7 Disorder of bilirubin metabolism, unspecified; D49.4 Neoplasm of unspecified behavior of bladder; Z95.5 Presence of coronary angioplasty implant and graft; Z79.82 Long term (current) use of aspirin; Y84.6 Urinary catheterization as the cause of abnormal reaction of the patient, or of later complication, without mention of misadventure at the time of the procedure
CPT/HCPCS: 71010; 74176; 74430; 76998; 80048; 80053; 80069; 81001; 83735; 83970; 84100; 84153; 84154; 85025; 85610; 85730; 87086; 88104; 93005; J0690; J0696; J1100; J2250; J2405; J2710; J3010; J7030; Q9967

== ENCOUNTER 2017-03-23 05:23 | Day surgery (SDC) | payer BC ==
[~2017-03-23] VITALS: Ht 172.7 cm; Wt 79.2 kg
[2017-03-23] VITALS (9 sets, daily range): BP systolic 112–139; BP diastolic 74–87; PULSE 58–70; RESP 11–20; Ht 172.7 cm; Wt 79.2 kg
[~2017-03-23 05:23] MED LIST: ATOR20TA65 PO; CARV6.2579 PO; CIPR-193 PO
--- NOTE | 2017-03-23 07:31 | HPN ---
Date/Time of Note Date/Time of Note DATE: 03/23/17 TIME: 07:30 Interval H&P Admission Note Pt. seen H&P reviewed: No system changes CHRISTIANO MUHAMMAD MD Mar 23, 2017 07:31
[2017-03-23] MEDS ORDERED: MIDAZOLAM 1 MG/ML 2 ML INJ ONE (07:38)
[2017-03-23] MEDS ORDERED: PROPOFOL 20 ML ONE (08:06)
[2017-03-23] MEDS ORDERED: LIDOCAINE 2% (SDV) 5 ML INJ ONE (08:06)
[2017-03-23] MEDS ORDERED: CEFAZOLIN 1 GM INJ ONE (08:06)
[2017-03-23] MEDS ORDERED: ONDANSETRON 4 MG INJ ONE (08:20)
--- NOTE | 2017-03-23 08:26 | OPR ---
Date/Time of Note Date/Time of Note DATE: 03/23/17 TIME: 08:19 Operative Report Procedure Date: Mar 23, 2017 Preoperative Diagnosis Urethral stricture Postoperative Diagnosis Urethral stricture Operation/Procedure Performed Internal ureterotomy under direct vision Surgeon see signature line Channeler None Anesthesia Type: general Anesthesiologist: JOEY DE LEON MD Estimated Blood Loss: none Transfusion none Specimen None Grafts/Implants none Tubes/Drains 22 [place] Brower catheter Complications none Pt Condition Post Procedure: stable Disposition: PACU Indications Urethral stricture Procedure Description The patient was brought to the operating room and was given general anesthesia. Timeout was done, the patient was identified by his name birthdate and the procedure. 2 g of Ancef were given IV at the start of the procedure. The patient was positioned in the lithotomy position. The genital area was prepped and draped in the usual sterile manner. The visual urethrotome was introduced into the urethra and the stricture was visualized. The stricture was very tight. A 3 [place] whistle-tip was passed through the opening of the stricture and then the stricture was cut at the 12 o'clock position and the scope advanced through the membranous urethra and into the bladder. The stricture was about 2 cm in length distal to the membranous urethra. The visual urethrotome was then removed and a regular cystoscopy was done and the bladder inspected. There was no bladder pathology. The scope was then removed and a 22 [place] Brower catheter was inserted into the bladder and connected to a drainage bag. The balloon inflated was 10 mL of sterile water. The balloon of the suprapubic tube was then deflated and the suprapubic tube was removed. The patient tolerated the procedure well and was transferred to the recovery room in a stable and satisfactory condition. CHRISTIANO MUHAMMAD MD Mar 23, 2017 08:26
[2017-03-23] MEDS ORDERED: HYDROCODONE/APAP (5/325) TAB PO PRN (08:30)
[2017-03-23] MEDS ORDERED: DIPHENHYDRAMINE 50 MG INJ IV PRN (09:00)
[2017-03-23] MEDS ORDERED: HYDROmorphONE (0.2 MG/ML) 10ML SYG IV PRN ×2 (09:00)
[2017-03-23] MEDS ORDERED: FENTAnyl 50 MCG/ML VIAL IV PRN (09:00)
[2017-03-23] MEDS ORDERED: ONDANSETRON 4 MG INJ IV PRN (09:00)
[2017-03-23] MEDS ORDERED: MEPERIDINE 25 MG INJ IV PRN (09:00)
== END 2017-03-23 10:35 | disposition home or self-care (01) ==
LOC: SDS 05:23
PROVIDERS: ATTEND Urology
DX: N35.9 Urethral stricture, unspecified (principal); I10 Essential (primary) hypertension; I25.10 Atherosclerotic heart disease of native coronary artery without angina pectoris; E78.5 Hyperlipidemia, unspecified
CPT/HCPCS: 52276; 87086; J0690; J2250; J2405; J3010; Z7512; Z7610